=== PATIENT | female | born 1960 | race Caucasian/White ===

== ENCOUNTER 2018-01-12 16:30 | Emergency (ER) | payer OTHER ==
--- OUTSIDE RECORDS SUMMARY | 2018-01-12 16:32 | XMS REPORT | Clinical Summary ---
:1960 Author Organization [facility] Address [address] [place] [address] Phone Care Team Providers Name Role Phone Unavailable Primary Care Provider Unavailable Allergies Active Allergy Reactions Severity Noted Date Comments Erythromycin Anaphylaxis High 02/11/2013 Penicillins Anaphylaxis, Rash High 02/11/2013 Codeine Phosphate Hives 11/17/2005 Fish Containing Products 04/16/2010 Hives (But not to shrimp, pt denies iodine allergy) Adhesive Tape Rash Low 04/16/2010 Aspirin (Tartrazine Only) Rash Low 02/11/2013 Current Medications Prescription Sig. Disp. Refills Start Date End Date Status olmesartan (BENICAR) 40 Take 40 mg by mouth Active MG tablet daily. clopidogrel (PLAVIX) 75 Take 75 mg by mouth Active mg tablet daily. traZODone (DESYREL) 100 Take 100 mg by Active MG tablet mouth nightly. nitroglycerin (NITROSTAT) Place 0.4 mg under Active 0.4 MG SL tablet the tongue every 5 (five) minutes as needed for Chest pain. atorvastatin (LIPITOR) 40 Take 40 mg by mouth Active MG tablet daily. isosorbide mononitrate Take 30 mg by mouth Active (IMDUR) 30 MG 24 hr daily. tablet ALPRAZolam (XANAX) 1 MG Take 1 mg by mouth Active tablet as needed for Anxiety. promethazine (PHENERGAN) Take 25 mg by mouth Active 25 MG tablet as needed for Nausea. sertraline (ZOLOFT) 100 Take 150 mg by Active MG tablet mouth daily. minocycline Take 100 mg by Active (MINOCIN,DYNACIN) 100 MG mouth 2 (two) times capsule daily. HYDROcodone-acetaminophen Take 1 tablet by Active (NORCO 10-325) 10-325 mg mouth every 6 (six) per tablet hours as needed for Pain. FOLIC ACID/MV,FE,OTHER Take 1 tablet by Active MIN (CENTRUM ORAL) mouth daily. ascorbic acid (VITAMIN C) Take 1,000 mg by Active 1000 MG tablet mouth daily. ciprofloxacin (CIPRO) 500 Take 500 mg by Active MG tablet mouth 2 (two) times daily. Active Problems Problem Noted Date Wound dehiscence 06/29/2014 Infected surgical wound 06/29/2014 Coronary atherosclerosis of [place] coronary artery 05/17/2014 Renal artery stenosis (HCC) 05/17/2014 Essential hypertension, benign 05/17/2014 Other and unspecified hyperlipidemia 05/17/2014 Mitral valve disorders(424.0) 05/17/2014 Obesity, unspecified 05/17/2014 Chronic kidney disease, stage II (mild) 05/17/2014 Encounters Date Type Specialty Care Team Description 11/19/2017 Hospital Encounter Cardiology Debbie Davila, Bilateral carotid artery MD occlusion 11/19/2017 Outside Orders Debbie Davila, Bilateral carotid artery MD occlusion (Primary Dx) after 01/11/2017 Social History Tobacco Use Types Packs/Day Years Used Date Former Smoker Comments: Quit > 16 yrs ago Alcohol Use Drinks/Week oz/Week Comments No Sex Assigned at Date Recorded Not on file Last Filed Vital Signs Not on file Plan of Treatment Not on file Results PERIPHERAL VASCULAR REPORT - SCAN (11/20/2017 7:20 AM)Carotid Doppler Bilateral (11/19/2017 5:53 PM) Component Value Ref Range Ejection Fraction Specimen Performing Laboratory [facility] Impressions Right Impression 1. There is <50% diameter reduction (approximately 38% by 2-D measurement) in the internal carotid artery with a peak velocity of 86/27 cm/sec and heterogeneous plaque. 2. There is non-occluding plaque in the external carotid artery. 3. There is non-occluding plaque in the common carotid artery. 4. The vertebral artery flow is antegrade and normal. 5. The subclavian artery is within normal limits where visualized. Left Impression 1. There is 50-69% diameter reduction (closer to 50% by 2-D measurement) in the internal carotid artery with heterogeneous/shadowing plaque, a peak velocity of 177/38 cm/sec and an ICA/CCA peak systolic velocity ratio of 0.38 . 2. There is >50% stenosis in the distal common carotid artery artery with a velocity of 242/56 cm/sec. 3. There is >50% stenosis in the external carotid artery with a velocity of 209/23 cm/sec. 4. The vertebral artery flow is antegrade and normal. Conclusions Summary Carotid duplex scanning and color flow imaging were performed bilaterally. The arteries were adequately visualized. The right internal carotid artery had <50% hemodynamically insignificant stenosis (approximately 38% by 2-D measurement) with heterogeneous plaque. The left internal carotid artery had 50-69% hemodynamically significant stenosis ( closer to 50% by 2-D measurement) with heterogeneous/shadowing plaque. There was a >50% stenosis in the distal common carotid artery . There was a >50% stenosis in the external carotid artery. The vertebral artery flow was antegrade and normal bilaterally. Signature Velocities are measured in cm/s ; Diameters are measured in cm Carotid Right Measurements + +----+----+-----+ + + + !Location !PSV !EDV !Angle!%Stenosis 2D!%Stenosis Doppler! Tortuosity ! + +----+----+-----+ + + + !Prox CCA !87.9!19.9!60 !! ! ! + +----+----+-----+ + + + !Dist CCA !79.7!19.3!60 !! ! ! + +----+----+-----+ + + + !Bulb !93.8!22.3!60 !! ! ! + +----+----+-----+ + + + !Prox ICA !86.8!27!60 !38% !<50% ! ! + +----+----+-----+ + + + !Dist ICA !91.5!31.1!60 !! ! ! + +----+----+-----+ + + + !Prox ECA !104 !17!60 !! ! ! + +----+----+-----+ + + + !Vertebral!81.5!23.5!60 !! ! ! + +----+----+-----+ + + + !Prox Subclavian!99!!60 !! ! ! + +----+----+-----+ + + + - Additional Measurements:ICAPSV/CCAPSV 1.15.ICAEDV/CCAEDV 1.56. Carotid Left Measurements + +----+----+-----+ + + + !Location !PSV !EDV !Angle!%Stenosis 2D!%Stenosis Doppler! Tortuosity ! + +----+----+-----+ + + + !Prox CCA !102 !20.4!60 !! ! ! + +----+----+-----+ + + + !Mid CCA!83.3!15.8!60 !! ! ! + +----+----+-----+ + + + !Dist CCA !242 !56.6!60 !! ! ! + +----+----+-----+ + + + !Bulb !177 !38!60 !! ! ! + +----+----+-----+ + + + !Prox ICA !80.9!24!60 !61% !<50% ! ! + +----+----+-----+ + + + !Dist ICA !92!31.1!60 !! ! ! + +----+----+-----+ + + + !Prox ECA !209 !23.6!60 !! ! ! + +----+----+-----+ + + + !Vertebral!46.8!11!60 !! ! ! + +----+----+-----+ + + + !Prox Subclavian!96.6!!60 !! ! ! + +----+----+-----+ + + + - Additional Measurements:ICAPSV/CCAPSV 0.38.ICAEDV/CCAEDV 1.52. Narrative [facility] - Carotid Duplex Study Demographics Patient Name BRITTANY BARNES Date of Study 11/19/2017 LEONIDES [id number] Age 57 Visit Number [id number] Gender Female Accession Number [id number] [facility] 1960 [facility] Physician ChaloographNilo Orona. Gunnar Brizuela MD, RVTPhysiciemiliano RPVI Procedure Type of Study: Cerebral: Carotid, CAROTID DOPPLER, BILATERAL. Indications for Study:CAD. Patient Status:Routine. Study Location:Vascular Lab. Technical Quality:Adequate visualization. Risk Factors History of Disease + +----+ + !Diagnosis!Date!Comments ! + +----+ + !Previous TN!!16 YEARS AGO ! + +----+ + !CAD!!ACB 1999 ! ! !!PCI x2 2012! + +----+ + !Recent surgery !!Renal artery stent 05/29/2014.! + +----+ + Procedure Note Interface, External Ris In - 11/19/2017 8:45 PM AG SERVICE MANAGER [facility] - Carotid Duplex Study Demographics Patient Name BRITTANY BARNES Date of Study 11/19/2017 LEONIDES Age 57 Visit Number [id number] Gender Female Accession Number [id number] Date of 1960 Referring Lola Muniz Room Number Physician [facility] Erick Barrera Interpreting Pedrito Brizuela MD, RVT Physician RPVI Procedure Type of Study: Cerebral: Carotid, CAROTID DOPPLER, BILATERAL. Indications for Study:CAD. Patient Status:Routine. Study Location:Vascular Lab. Technical Quality:Adequate visualization. Risk Factors History of Disease + +----+ + !Diagnosis !Date!Comments ! + +----+ + !Previous TN ! !16 YEARS AGO ! + +----+ + !CAD ! !ACB 1999 ! ! ! !PCI x2 2012 ! + +----+ + !Recent surgery ! !Renal artery stent 05/29/2014. ! + +----+ + Impressions Right Impression 1. There is <50% diameter reduction (approximately 38% by 2-D measurement) in the internal carotid artery with a peak velocity of 86/27 cm/sec and heterogeneous plaque. 2. There is non-occluding plaque in the external carotid artery. 3. There is non-occluding plaque in the common carotid artery. 4. The vertebral artery flow is antegrade and normal. 5. The subclavian artery is within normal limits where visualized. Left Impression 1. There is 50-69% diameter reduction (closer to 50% by 2-D measurement) in the internal carotid artery with heterogeneous/shadowing plaque, a peak velocity of 177/38 cm/sec and an ICA/CCA peak systolic velocity ratio of 0.38 . 2. There is >50% stenosis in the distal common carotid artery artery with a velocity of 242/56 cm/sec. 3. There is >50% stenosis in the external carotid artery with a velocity of 209/23 cm/sec. 4. The vertebral artery flow is antegrade and normal. Conclusions Summary Carotid duplex scanning and color flow imaging were performed bilaterally. The arteries were adequately visualized. The right internal carotid artery had <50% hemodynamically insignificant stenosis (approximately 38% by 2-D measurement) with heterogeneous plaque. The left internal carotid artery had 50-69% hemodynamically significant stenosis ( closer to 50% by 2-D measurement) with heterogeneous/shadowing plaque. There was a >50% stenosis in the distal common carotid artery . There was a >50% stenosis in the external carotid artery. The vertebral artery flow was antegrade and normal bilaterally. Signature Velocities are measured in cm/s ; Diameters are measured in cm Carotid Right Measurements + +----+----+-----+ + + + !Location !PSV !EDV !Angle!%Stenosis 2D!%Stenosis Doppler!Tortuosity ! + +----+----+-----+ + + + !Prox CCA !87.9!19.9!60 ! ! ! ! + +----+----+-----+ + + + !Dist CCA !79.7!19.3!60 ! ! ! ! + +----+----+-----+ + + + !Bulb !93.8!22.3!60 ! ! ! ! + +----+----+-----+ + + + !Prox ICA !86.8!27 !60 !38% !<50% ! ! + +----+----+-----+ + + + !Dist ICA !91.5!31.1!60 ! ! ! ! + +----+----+-----+ + + + !Prox ECA !104 !17 !60 ! ! ! ! + +----+----+-----+ + + + !Vertebral !81.5!23.5!60 ! ! ! ! + +----+----+-----+ + + + !Prox Subclavian!99 ! !60 ! ! ! ! + +----+----+-----+ + + + - Additional Measurements:ICAPSV/CCAPSV 1.15.ICAEDV/CCAEDV 1.56. Carotid Left Measurements + +----+----+-----+ + + + !Location !PSV !EDV !Angle!%Stenosis 2D!%Stenosis Doppler!Tortuosity ! + +----+----+-----+ + + + !Prox CCA !102 !20.4!60 ! ! ! ! + +----+----+-----+ + + + !Mid CCA !83.3!15.8!60 ! ! ! ! + +----+----+-----+ + + + !Dist CCA !242 !56.6!60 ! ! ! ! + +----+----+-----+ + + + !Bulb !177 !38 !60 ! ! ! ! + +----+----+-----+ + + + !Prox ICA !80.9!24 !60 !61% !<50% ! ! + +----+----+-----+ + + + !Dist ICA !92 !31.1!60 ! ! ! ! + +----+----+-----+ + + + !Prox ECA !209 !23.6!60 ! ! ! ! + +----+----+-----+ + + + !Vertebral !46.8!11 !60 ! ! ! ! + +----+----+-----+ + + + !Prox Subclavian!96.6! !60 ! ! ! ! + +----+----+-----+ + + + - Additional Measurements:ICAPSV/CCAPSV 0.38.ICAEDV/CCAEDV 1.52. after 01/11/2017
--- NOTE | 2018-01-12 17:54 | RAD REPORT ---
EXAM DESCRIPTION: RAD - Chest Pa And Lat (2 Views) - 01/12/2018 5:22 pm CLINICAL HISTORY: ^BLUNT CHEST TRAUMA COMPARISON: CR; Chest 12/30/2016. TECHNIQUE: PA and lateral views of the chest were obtained. FINDINGS: The lungs are fibrotic. Patient has a prominent left side pericardial fat pad. Sternotomy wires are in place. Costophrenic angle blunting is present and unchanged. No pulmonary contusion. No failure or volume overload. Heart size is normal and central vasculature is within normal limits. N o pleural effusion or pneumothorax seen. No acute bony finding noted. No aortic abnormality. IMPRESSION: Chronic interstitial lung disease is present along with pleural scarring. No pulmonary contusion, pneumothorax or other acute chest finding.
--- NOTE | 2018-01-12 18:13 | ER ---
Nurse's Notes [facility] Name: Brittany Barnes Age: 57 yrs Sex: Female : 1960 Arrival Date: 01/12/2018 Time: 16:34 Bed 12 Private MD: Crispin Crenshaw T Diagnosis: Other slipping, tripping and stumbling and falls;Other chest pain-Left Lateral Rib Pain Presentation: 01/12 17:00 Presenting complaint: Patient states: fell Thursday afternoon and hit a sink. pain to L ch ribs and side. Transition of care: patient was not received from another setting of care. Onset of symptoms was January 08, 2018. Initial Sepsis Screen: Does the patient meet any 2 criteria? No. Patient's initial sepsis screen is negative. Does the patient have a suspected source of infection? No. Patient's initial sepsis screen is negative. Care prior to arrival: None. 17:00 Method Of Arrival: Ambulatory 17:00 Acuity: NIL[place] 4 18:25 Mechanism of Injury: Fall from standing position. Trauma event details: Injury occurred aj in the [facility], Injury occurred: at home. Injury occurred: January 08, 2018. Triage Assessment: 17:02 General: Appears in no apparent distress. comfortable, Behavior is calm, cooperative, ch appropriate for age. Pain: Complains of pain in left lateral posterior chest and left lateral anterior chest Pain currently is 4 out of 10 on a pain scale. at worst was 8 out of 10 on a pain scale. Trauma Activation: Not Applicable Physician: ED Physician; Name: ; Notified At: ; Arrived At: Physician: General Surgeon; Name: ; Notified At: ; Arrived At: Physician: Radiology; Name: ; Notified At: ; Arrived At: Physician: Respiratory; Name: ; Notified At: ; Arrived At: Physician: Lab; Name: ; Notified At: ; Arrived At: Historical: - Allergies: 17:02 Aspirin; ch 17:02 Erythromycin; ch 17:02 Fish Containing Products; ch 17:02 PENICILLINS; ch 17:02 any penicillins; ch 17:02 Codeine; ch - Home Meds: 17:04 Plavix 75 mg Oral tab [Active]; ch - PMHx: 17:02 High Cholesterol; Hypertension; one small kidney, on normal; Myocardial infarction; ch 17:04 "clotting disorder, i bleed easily"; - PSHx: 17:02 coronary stent; open heart sx; Appendectomy; Cholecystectomy; PT SKILLED/Stent; bypass; aneurysm/femoral; - Immunization history:: Adult Immunizations up to date. - Social history:: Smoking status: Patient/guardian denies using tobacco. - Immunization history: Last tetanus immunization: - up to date. Screenin:14 Abuse screen: Denies threats or abuse. Denies injuries from another. Tuberculosis aj screening: No symptoms or risk factors identified. 17:17 Nutritional screening: No deficits noted. Fall Risk None identified. aj Primary Survey: 17:14 A: Airway: patent. Breathing/Chest: Respiratory pattern: regular, Respiratory effort: aj spontaneous, unlabored. Circulation: Skin color: pink, Skin temperature: warm, dry. Disability Alert. 18:10 Reassessment Airway Airway Patent Breathing/Chest Respiratory pattern Regular aj Respiratory effort Spontaneous Unlabored Chest inspection Symmetrical Circulation Heart rhythm Sinus rhythm Color [place] Temperature Warm Dry Disability Alert. Assessment: 17:14 General: Appears in no apparent distress. comfortable, Behavior is calm, cooperative, aj appropriate for age. Pain: Complains of pain in left lateral posterior chest, left lateral anterior chest and left tricep. Neuro: Level of Consciousness is awake, alert, obeys commands, Oriented to person, place, time, situation. Respiratory: Airway is patent Respiratory effort is even, unlabored, Respiratory pattern is regular, symmetrical. Derm: Skin is intact, is healthy with good turgor, Skin is pink, warm \\T\\ dry. normal. Vital Signs: 17:02 BP 167 / 70; Pulse 83; Resp 16; Temp 98.3; Pulse Ox 96% on R/A; Weight 95.25 kg; Height 5 ft. 3 in. (160.02 cm); Pain 4/10; 18:00 BP 160 / 71; Pulse 81; Resp 17; Pulse Ox 99% on R/A; aj 17:02 Body Mass Index 37.20 (95.25 kg, 160.02 cm) Kelsey Coma Score: 17:14 Eye Response: spontaneous(4). Verbal Response: oriented(5). Motor Response: obeys aj commands(6). Total: 15. Trauma Score (Adult): 17:14 Eye Response: spontaneous(1); Verbal Response: oriented(1); Motor Response: obeys aj commands(2); Systolic BP: > 89 mm Hg(4); Respiratory Rate: 10 to 29 per min(4); [place] Score: 15; Trauma Score: 12 ED Course: 16:34 Patient arrived in ED. mr 16:34 Crispin Crenshaw MD is Private Physician. mr 17:00 Triage completed. ch 17:02 Arm band placed on left wrist. Patient placed in an exam room, on a stretcher. ch 17:08 Amrik Cole PA is PHCP. cp 17:08 Amrik Coleman MD is Attending Physician. cp 17:14 Osiris Boyd, RN is Primary Nurse. aj 17:14 Patient has correct armband on for positive identification. aj 17:19 Patient moved to radiology via wheelchair. kc2 17:19 X-ray completed. Patient tolerated procedure well. kc2 17:21 XRAY Chest Pa And Lat (2 Views) In Process Unspecified. EDMS 18:00 No provider procedures requiring assistance completed. Patient did not have IV access aj during this emergency room visit. 18:11 Crispin Crenshaw MD is Referral Physician. cp 18:26 Patient maintains SpO2 saturation greater than 95% on room air. aj Administered Medications: No medications were administered Intake: 17:14 PO: 0ml; Total: 0ml. aj Outcome: 18:00 Discharged to home ambulatory. aj 18:00 Condition: good 18:00 Discharge instructions given to patient, Instructed on discharge instructions, follow up and referral plans. medication usage, Demonstrated understanding of instructions, follow-up care, medications, Prescriptions given X 2. 18:12 Discharge ordered by MD. cp 18:25 Patient's length of stay was not longer than 2 hours. aj 18:28 Patient left the ED. aj Signatures: Dispatcher [employer] EDNE Aracely Collier, Osiris Cortez RN, ch RN Maribel Nguyen mr Amirk Cole PA PA cp Carr, Kelsie kc2
--- NOTE | 2018-01-12 18:13 | EDPHYS ---
Physician Documentation [facility] Name: Brittany Barnes Age: 57 yrs Sex: Female : 1960 Arrival Date: 01/12/2018 Time: 16:34 Bed 12 Private MD: Crispin Crenshaw T ED Physician Amrik Coleman HPI: 01/12 18:00 This 57 yrs old Female presents to ER via Ambulatory with complaints of Fall cp Injury. 18:00 Details of fall: The patient fell from an upright position, while walking. Onset: The cp symptoms/episode began/occurred 4 day(s) ago. Associated injuries: The patient sustained injury to the chest, specifically the left lateral anterior chest, contusion, tenderness, injury to the abdomen, specifically the anterior aspect of left lateral abdomen, ecchymosis, tenderness. Severity of symptoms: in the emergency department the symptoms are unchanged, despite home interventions. Historical: - Allergies: 17:02 Aspirin; ch 17:02 Erythromycin; ch 17:02 Fish Containing Products; ch 17:02 PENICILLINS; ch 17:02 any penicillins; ch 17:02 Codeine; ch - Home Meds: 17:04 Plavix 75 mg Oral tab [Active]; ch - PMHx: 17:02 High Cholesterol; Hypertension; one small kidney, on normal; Myocardial infarction; ch 17:04 "clotting disorder, i bleed easily"; ch - PSHx: 17:02 coronary stent; open heart sx; Appendectomy; Cholecystectomy; PRESIDENT AND CMO/Stent; bypass; ch aneurysm/femoral; - Immunization history:: Adult Immunizations up to date. - Social history:: Smoking status: Patient/guardian denies using tobacco. - Immunization history: Last tetanus immunization: - up to date. ROS: 18:02 Eyes: Negative for injury, pain, redness, and discharge. cp 18:02 Constitutional: Negative for body aches, chills, fever, poor PO intake. 18:02 ENT: Negative for drainage from ear(s), ear pain, sore throat, difficulty swallowing, difficulty handling secretions. 18:02 Neck: Negative for pain with movement, pain at rest, bony tenderness. 18:02 Cardiovascular: Positive for chest pain, of the left lateral anterior chest, Negative for edema, palpitations. 18:02 Respiratory: Negative for cough, shortness of breath, wheezing. 18:02 Abdomen/GI: Positive for abdominal pain, of the anterior aspect of left lateral abdomen, Negative for nausea, vomiting, and diarrhea, constipation, black/tarry stool, rectal bleeding. 18:02 Back: Negative for pain at rest, pain with movement. 18:02 Skin: Negative for cellulitis, laceration(s), rash. 18:02 Neuro: Negative for altered mental status, dizziness, loss of consciousness, weakness. 18:02 All other systems are negative. Exam: 18:04 Head/Face: Normocephalic, atraumatic. cp 18:04 Constitutional: The patient appears in no acute distress, alert, awake, non-diaphoretic, non-toxic, well developed, well nourished. 18:04 Eyes: Periorbital structures: appear normal, Conjunctiva: normal, no exudate, no injection, Lids and lashes: appear normal, bilaterally. 18:04 ENT: External ear(s): are unremarkable, Nose: is normal, Mouth: Lips: moist, Oral mucosa: moist, Posterior pharynx: is normal, airway is patent, no erythema, no exudate. 18:04 Neck: C-spine: vertebral tenderness, is not appreciated, crepitus, is not appreciated, ROM/movement: is normal, is supple, without pain, no range of motions limitations, no nuchal rigidity. 18:04 Chest/axilla: Inspection: ecchymosis, that is mild, of the left lateral anterior chest Palpation: tenderness, that is mild, of the left lateral anterior chest. 18:04 Cardiovascular: Rate: normal, Rhythm: regular. 18:04 Respiratory: the patient does not display signs of respiratory distress, Respirations: normal, no use of accessory muscles, no retractions, no splinting, no tachypnea, labored breathing, is not present, Breath sounds: are clear throughout, no decreased breath sounds, no stridor, no wheezing. 18:04 Abdomen/GI: Inspection: bruising, anterior aspect of left lateral abdomen, obese Bowel sounds: active, all quadrants, Palpation: soft, in all quadrants, mild abdominal tenderness, in the anterior aspect of left lateral abdomen, rebound tenderness, is not appreciated, involuntary guarding, is not appreciated. 18:04 Back: vertebral tenderness, is not appreciated, muscle spasm, is not present. 18:04 Skin: cellulitis, is not appreciated, no rash present. 18:04 Neuro: Orientation: to person, place \\T\\ time. Mentation: lucid, able to follow commands, Motor: moves all fours, strength is normal, Sensation: no obvious gross deficits, Gait: is steady. Vital Signs: 17:02 BP 167 / 70; Pulse 83; Resp 16; Temp 98.3; Pulse Ox 96% on R/A; Weight 95.25 kg; Height 5 ft. 3 in. (160.02 cm); Pain 4/10; 18:00 BP 160 / 71; Pulse 81; Resp 17; Pulse Ox 99% on R/A; aj 17:02 Body Mass Index 37.20 (95.25 kg, 160.02 cm) Remer Coma Score: 17:14 Eye Response: spontaneous(4). Verbal Response: oriented(5). Motor Response: obeys aj commands(6). Total: 15. Trauma Score (Adult): 17:14 Eye Response: spontaneous(1); Verbal Response: oriented(1); Motor Response: obeys aj commands(2); Systolic BP: > 89 mm Hg(4); Respiratory Rate: 10 to 29 per min(4); Remer Score: 15; Trauma Score: 12 MDM: 17:08 Patient medically screened. cp 18:00 Differential diagnosis: contusion, fracture, multiple trauma. cp 18:12 Data reviewed: vital signs, nurses notes, radiologic studies, plain films. cp 18:12 Counseling: I had a detailed discussion with the patient and/or guardian regarding: the historical points, exam findings, and any diagnostic results supporting the discharge/admit diagnosis, radiology results, to return to the emergency department if symptoms worsen or persist or if there are any questions or concerns that arise at home. Refusal of service: The patient/guardian displays adequate decision making capability and despite a detailed discussion of alternatives, benefits, risks, and consequences refuses: CT Scan. 01/12 17:06 Order name: XRAY Chest Pa And Lat (2 Views); Complete Time: 17:55 Administered Medications: No medications were administered Disposition: 01/13 06:42 Co-signature as Attending Physician, Amrik Coleman MD I agree with the assessment and julianna plan of care. Disposition: 01/12/18 18:12 Discharged to Home. Impression: Other slipping, tripping and stumbling and falls, Other chest pain - Left Lateral Rib Pain. - Condition is Stable. - Discharge Instructions: Rib Contusion. - Prescriptions for Cyclobenzaprine 10 mg Oral Tablet - take 1 tablet by ORAL route every 8 hours As needed no driving while taking medication; 15 tablet. Tramadol 50 mg Oral Tablet - take 1 tablet by ORAL route every 8 hours as needed; 12 tablet. - Medication Reconciliation Form, Thank You Letter, Antibiotic Education, Prescription Opioid Use form. - Follow up: Crispin Crenshaw MD; When: 1 - 2 days; Reason: Recheck today's complaints. - Problem is new. - Symptoms are unchanged. Signatures: Dispatcher [employer] EDAracely Warner RN Osiris Cortez ch, RN RN aj Anderson, Corey, MD MD cha Page, Corey, PA PA cp
== END 2018-01-12 18:28 | disposition home or self-care (01) ==
LOC: ER 16:30
DX: S20.212A Contusion of left front wall of thorax, initial encounter (principal); R07.81 Pleurodynia; W20.8XXA Other cause of strike by thrown, projected or falling object, initial encounter; Y93.01 Activity, walking, marching and hiking; Y92.9 Unspecified place or not applicable; Z88.0 Allergy status to penicillin
CPT/HCPCS: 71046; 99284

== ENCOUNTER 2018-08-13 12:56 | Emergency (ER) | payer OTHER ==
--- OUTSIDE RECORDS SUMMARY | 2018-08-13 12:58 | XMS REPORT | Clinical Summary ---
:[address] [facility] Address [address] [place] [address] Care Team Providers Name Role Phone Maura Carcamo Unavailable Crispin Crenshaw MD Primary Care Provider Allergies Active Allergy Reactions Severity Noted Date Comments Adhesive Tape Rash Low 04/16/2010 Aspirin (Tartrazine Only) Rash Low 02/11/2013 Codeine Phosphate Hives 11/17/2005 Erythromycin Anaphylaxis High 02/11/2013 Fish Containing Products 04/16/2010 Hives (But not to shrimp, pt denies iodine allergy) Penicillins Anaphylaxis, Rash High 02/11/2013 Medications Medication Sig Dispensed Refills Start Date End Date Status olmesartan (BENICAR) 40 Take 40 mg by 0 Active MG tablet mouth daily. clopidogrel (PLAVIX) 75 Take 75 mg by 0 Active mg tablet mouth daily. traZODone (DESYREL) 100 Take 100 mg by 0 Active MG tablet mouth nightly. nitroglycerin Place 0.4 mg 0 Active (NITROSTAT) 0.4 MG SL under the tongue tablet every 5 (five) minutes as needed for Chest pain. atorvastatin (LIPITOR) Take 40 mg by 0 Active 40 MG tablet mouth daily. isosorbide mononitrate Take 30 mg by 0 Active (IMDUR) 30 MG 24 hr mouth daily. tablet ALPRAZolam (XANAX) 1 MG Take 1 mg by 0 Active tablet mouth as needed for Anxiety. promethazine Take 25 mg by 0 Active (PHENERGAN) 25 MG mouth as needed tablet for Nausea. sertraline (ZOLOFT) 100 Take 150 mg by 0 Active MG tablet mouth daily. minocycline Take 100 mg by 0 Active (MINOCIN,DYNACIN) 100 mouth 2 (two) MG capsule times daily. HYDROcodone-acetaminoph Take 1 tablet by 0 Active en (NORCO 10-325) mouth every 6 10-325 mg per tablet (six) hours as needed for Pain. FOLIC ACID/MV,FE,OTHER Take 1 tablet by 0 Active MIN (CENTRUM ORAL) mouth daily. ascorbic acid (VITAMIN Take 1,000 mg by 0 Active C) 1000 MG tablet mouth daily. ciprofloxacin (CIPRO) Take 500 mg by 0 Active 500 MG tablet mouth 2 (two) times daily. Active Problems Problem Noted Date Wound dehiscence 06/29/2014 Infected surgical wound 06/29/2014 Coronary atherosclerosis of [place] coronary artery 05/17/2014 Renal artery stenosis 05/17/2014 Essential hypertension, benign 05/17/2014 Other and unspecified hyperlipidemia 05/17/2014 Mitral valve disorders(424.0) 05/17/2014 Obesity, unspecified 05/17/2014 Chronic kidney disease, stage II (mild) 05/17/2014 Encounters Date Type Specialty Care Team Description 11/19/2017 Hospital Encounter Cardiology Debbie Davila, Bilateral carotid artery MD occlusion 11/19/2017 Outside Orders Debbie Davila, Bilateral carotid artery MD occlusion (Primary Dx) after 08/12/2017 Social History Tobacco Use Types Packs/Day Years Used Date Former Smoker Comments: Quit > 16 yrs ago Alcohol Use Drinks/Week oz/Week Comments No Sex Assigned at Date Recorded Not on file Job Start Date Occupation Industry Not on file Not on file Not on file Travel History Travel Start Travel End No recent travel history available. Last Filed Vital Signs Not on file Plan of Treatment Not on file Procedures Procedure Name Priority Date/Time Associated Comments Diagnosis PERIPHERAL VASCULAR 11/20/2017 7:20 AM REPORT - SCAN HELICOPTER PILOT CAROTID DOPPLER Routine 11/19/2017 5:53 PM Bilateral carotid Results for this BILATERAL HELICOPTER PILOT artery occlusion procedure are in the results section. after 08/12/2017 Results PERIPHERAL VASCULAR REPORT - SCAN (11/20/2017 7:20 AM HELICOPTER PILOT) Narrative Performed At Carotid Doppler Bilateral (11/19/2017 5:53 PM HELICOPTER PILOT) Ejection Fraction [facility] Impressions Performed At Right Impression [facility] 1. There is <50% diameter reduction (approximately [...] in cm Carotid Right Measurements + +----+----+-----+ +---- + + !Location !PSV !EDV !Angle!%Stenosis 2D!%Stenosis Doppler!Tortuosity ! + +----+----+-----+ +---- + + !Prox CCA !87.9!19.9!60 !! ! ! + +----+----+-----+ +---- + + !Dist CCA !79.7!19.3!60 !! ! ! + +----+----+-----+ +---- + + !Bulb !93.8!22.3!60 !! ! ! + +----+----+-----+ +---- + + !Prox ICA !86.8!27!60 !38% !<50% ! ! + +----+----+-----+ +---- + + !Dist ICA !91.5!31.1!60 !! ! ! + +----+----+-----+ +---- + + !Prox ECA !104 !17!60 !! ! ! + +----+----+-----+ +---- + + !Vertebral!81.5!23.5!60 !! ! ! + +----+----+-----+ +---- + + !Prox Subclavian!99!!60 !! ! ! + +----+----+-----+ +---- + + - Additional Measurements:ICAPSV/CCAPSV 1.15.ICAEDV/CCAEDV 1.56. Carotid Left Measurements + +----+----+-----+ +---- + + !Location !PSV !EDV !Angle!%Stenosis 2D!%Stenosis Doppler!Tortuosity ! + +----+----+-----+ +---- + + !Prox CCA !102 !20.4!60 !! ! ! + +----+----+-----+ +---- + + !Mid CCA!83.3!15.8!60 !! ! ! + +----+----+-----+ +---- + + !Dist CCA !242 !56.6!60 !! ! ! + +----+----+-----+ +---- + + !Bulb !177 !38!60 !! ! ! + +----+----+-----+ +---- + + !Prox ICA !80.9!24!60 !61% !<50% ! ! + +----+----+-----+ +---- + + !Dist ICA !92!31.1!60 !! ! ! + +----+----+-----+ +---- + + !Prox ECA !209 !23.6!60 !! ! ! + +----+----+-----+ +---- + + !Vertebral!46.8!11!60 !! ! ! + +----+----+-----+ +---- + + !Prox Subclavian!96.6!!60 !! ! ! + +----+----+-----+ +---- + + - Additional Measurements:ICAPSV/CCAPSV 0.38.ICAEDV/CCAEDV 1.52. Narrative Performed At LAB - Carotid Duplex Study [facility] Demographics Patient Name BRITTANY BARNES Date of Study 11/19/2017 LEONIDES [id number] Age 57 Visit Number [id number] GenderFemale Accession Number [id number] Date of 1960 [facility] Debbie AguirreJakRoom Number Physician Shanita Orona. Gunnar Brizuela MD, RVT Physician RPVINICIUS Procedure Type of Study: Cerebral: Carotid, CAROTID DOPPLER, BILATERAL. Indications for Study:CAD. Patient Status:Routine. Study Location:Vascular Lab. Technical Quality:Adequate visualization. Risk Factors History of Disease + +----+ + !Diagnosis!Date!Comments ! + +----+ + !Previous ND!!16 YEARS AGO ! + +----+ + !CAD!!ACB 1999 ! ! !!PCI x2 2012 ! + +----+ + !Recent surgery !!Renal artery stent 05/29/2014. ! + +----+ + Procedure Note Interface, External Ris In - 11/19/2017 8:45 PM HELICOPTER PILOT [facility] - Carotid Duplex Study Demographics Patient Name BRITTANY BARNES Date of Study 11/19/2017 LEONIDES Age 57 Visit Number [id number] Gender Female Accession Number [id number] Date of 1960 Referring Lola Muniz Room Number Physician Addiction Therapist Erick Barrera Interpreting Pedrito Brizuela MD, RVT Physician RPVI Procedure Type of Study: Cerebral: Carotid, CAROTID DOPPLER, BILATERAL. Indications for Study:CAD. Patient Status:Routine. Study Location:Vascular Lab. Technical Quality:Adequate visualization. Risk Factors History of Disease + +----+ + !Diagnosis !Date!Comments ! + +----+ + !Previous ND ! !16 YEARS AGO ! + +----+ + !CAD ! !ACB 1999 ! ! ! !PCI x2 2005, 2012 ! + +----+ + !Recent surgery [...] + + - Additional Measurements:ICAPSV/CCAPSV 0.38.ICAEDV/CCAEDV 1.52. Performing Organization Address City/State/Zipcode Phone Number [facility] after 08/12/2017 Insurance Payer Benefit Plan / Group Subscriber ID Type Phone Address CARE IMPROVEMENT MEDICARE [employer] CARE IMPROVEMENT PLUS xxxxxxxxx CARE (Home) [place] [address] Advance Directives For more information, please contact:[address] [phone] Code Status Date Activated Date Inactivated Comments Full Code 06/29/2014 8:39 AM 06/30/2014 10:40 PM This code status was determined by: Patient Full Code 06/29/2014 5:55 AM 06/29/2014 8:39 AM This code status was determined by: Patient Full Code 05/29/2014 6:36 AM 06/05/2014 1:46 PM This code status was determined by: Patient
[2018-08-13] MEDS ORDERED: METHYLPREDNISOLONE 125 MG INJ ONE (13:55)
[2018-08-13] MEDS ORDERED: FAMOTIDINE 20 MG/2 ML VIAL IV ONE (13:55)
--- NOTE | 2018-08-13 15:46 | ER ---
Nurse's Notes [facility] Name: Brittany Barnes Age: 58 yrs Sex: Female : 1960 Arrival Date: 08/13/2018 Time: 13:01 Bed 30 Private MD: Diagnosis: Toxic effect of venom of bees Presentation: 08/13 13:01 Presenting complaint: Patient states: " I was stung by a bee about 20 min ago. I had a ph bad reaction to a bee sting when I was younger." Pt reports taking Benadryl x 2 at home, denies SOB at this time, lungs CTA w/ no wheezing noted, pt does report nausea, Spo2 97% RA. Transition of care: patient was not received from another setting of care. Onset: The symptoms/episode began/occurred acutely. Anaphylaxis evaluation, no signs or symptoms of anaphylaxis were noted. Onset of symptoms was August 13, 2018. Risk Assessment: Do you want to hurt yourself or someone else? Patient reports no desire to harm self or others. Care prior to arrival: None. 13:01 Method Of Arrival: Ambulatory ph 13:01 Acuity: NIL[place] 3 ph 13:15 Initial Sepsis Screen: Does the patient meet any 2 criteria? No. Patient's initial kr2 sepsis screen is negative. Does the patient have a suspected source of infection? No. Patient's initial sepsis screen is negative. Historical: - Allergies: 13:05 any penicillins; ph 13:05 Aspirin; ph 13:05 Codeine; ph 13:05 Erythromycin; ph 13:05 Fish Containing Products; ph 13:05 PENICILLINS; ph - PMHx: 13:05 "clotting disorder, i bleed easily"; High Cholesterol; Hypertension; Myocardial ph infarction; one small kidney, on normal; - Immunization history:: Adult Immunizations up to date. - Social history:: Smoking status: Patient uses tobacco products. - Ebola Screening: : No symptoms or risks identified at this time. Screenin:15 Abuse screen: Denies threats or abuse. Denies injuries from another. Nutritional kr2 screening: No deficits noted. Tuberculosis screening: No symptoms or risk factors identified. Fall Risk None identified. Assessment: 13:15 General: Appears in no apparent distress. uncomfortable, well groomed, well developed, kr2 well nourished, Behavior is calm, cooperative, appropriate for age. Pain: Complains of pain in right tricep Pain does not radiate. Pain currently is 10 out of 10 on a pain scale. Quality of pain is described as burning, Is continuous, Alleviated by nothing. Neuro: Level of Consciousness is awake, alert, obeys commands, Oriented to person, place, time, situation, Appropriate for age. Cardiovascular: Capillary refill < 3 seconds in bilateral fingers Patient's skin is warm and dry. Respiratory: Airway is patent Respiratory effort is even, unlabored, Respiratory pattern is regular, symmetrical, Breath sounds are clear bilaterally. GI: Abdomen is flat, non-distended. EENT: Nares are clear bilaterally Oral mucosa is moist. Throat is clear bilaterally. Derm: Skin is intact, is healthy with good turgor, Skin is pink, warm \\T\\ dry. sting noted to right tricep area, red and swollen with pinpoint size purple area to center. Musculoskeletal: Circulation, motion, and sensation intact. 14:37 Reassessment: Patient appears in no apparent distress at this time. Patient and/or kr2 family updated on plan of care and expected duration. Pain level reassessed. Patient is alert, oriented x 3, equal unlabored respirations, skin warm/dry/pink. Patient states feeling better. Patient states symptoms have improved. 15:53 Reassessment: Patient appears in no apparent distress at this time. Patient and/or kr2 family updated on plan of care and expected duration. Pain level reassessed. Patient is alert, oriented x 3, equal unlabored respirations, skin warm/dry/pink. Patient states feeling better. Patient states symptoms have improved. Vital Signs: 13:04 BP 203 / 95; Pulse 87; Resp 18; Temp 97.8; Pulse Ox 97% on R/A; Weight 87.54 kg; Height ph 5 ft. 10 in. (177.80 cm); 13:54 BP 190 / 83; Pulse 85; Resp 22; Pulse Ox 97% ; kr2 14:12 BP 165 / 87; Pulse 86; Resp 21; Pulse Ox 97% ; kr2 15:53 BP 170 / 88; Pulse 74; Resp 20; Pulse Ox 99% on R/A; kr2 13:04 Body Mass Index 27.69 (87.54 kg, 177.80 cm) ph ED Course: 13:01 Patient arrived in ED. ph 13:04 Triage completed. ph 13:05 Arm band placed on. ph 13:15 Patient has correct armband on for positive identification. Bed in low position. Call kr2 light in reach. Side rails up X 1. pvc monitor on. Pulse ox on. NIBP on. Door closed. Warm blanket given. Head of bed elevated. 13:20 Andres Montana MD is Attending Physician. kdr 13:45 Inserted saline lock: 22 gauge in right antecubital area, using aseptic technique. kr2 14:12 Siena London, RN is Primary Nurse. kr2 15:54 No provider procedures requiring assistance completed. IV discontinued, intact, kr2 bleeding controlled, No redness/swelling at site. Pressure dressing applied. Administered Medications: 13:51 Drug: SOLU-Medrol 125 mg Route: IVP; Site: right antecubital; kr2 15:55 Follow up: Response: No adverse reaction; Marked relief of symptoms kr2 13:52 Drug: Pepcid 20 mg Route: IVP; Site: right antecubital; kr2 15:54 Follow up: Response: No adverse reaction; Marked relief of symptoms kr2 Outcome: 15:41 Discharge ordered by . kdr 15:54 Discharged to home ambulatory. kr2 15:54 Condition: good 15:54 Discharge instructions given to patient, Instructed on discharge instructions, follow up and referral plans. medication usage, Demonstrated understanding of instructions, follow-up care, medications, Prescriptions given X 3. 15:55 Patient left the ED. kr2 Signatures: Andres Montana MD MD [facility] Nicci Mason RN RN Siena London, ASTER RN kr2 Corrections: (The following items were deleted from the chart) 14:37 13:15 Social history: Smoking status: Patient/guardian denies using tobacco, kr2 kr2
--- NOTE | 2018-08-13 15:46 | EDPHYS ---
Physician Documentation [facility] Name: Brittany Barnes Age: 58 yrs Sex: Female : 1960 Arrival Date: 08/13/2018 Time: 13:01 Bed 30 Private MD: ED Physician Andres Montana HPI: 08/13 17:12 This 58 yrs old Female presents to ER via Ambulatory with complaints of kdr Allergic Reaction. 17:12 The patient presents with localized swelling, redness of skin, runny nose. Onset: The kdr symptoms/episode began/occurred acutely. Associated signs and symptoms: Pertinent positives: Localized pain and swelling at the site of pain, Pertinent negatives: abdominal pain, Altered mental status chest pain, dysphagia, fever, headache, hives, Light headed nausea, rash, shortness of breath. Historical: - Allergies: 13:05 any penicillins; ph 13:05 Aspirin; ph 13:05 Codeine; ph 13:05 Erythromycin; ph 13:05 Fish Containing Products; ph 13:05 PENICILLINS; ph - PMHx: 13:05 "clotting disorder, i bleed easily"; High Cholesterol; Hypertension; Myocardial ph infarction; one small kidney, on normal; - Immunization history:: Adult Immunizations up to date. - Social history:: Smoking status: Patient uses tobacco products. - Ebola Screening: : No symptoms or risks identified at this time. Vital Signs: 13:04 BP 203 / 95; Pulse 87; Resp 18; Temp 97.8; Pulse Ox 97% on R/A; Weight 87.54 kg; Height ph 5 ft. 10 in. (177.80 cm); 13:54 BP 190 / 83; Pulse 85; Resp 22; Pulse Ox 97% ; kr2 14:12 BP 165 / 87; Pulse 86; Resp 21; Pulse Ox 97% ; kr2 15:53 BP 170 / 88; Pulse 74; Resp 20; Pulse Ox 99% on R/A; kr2 13:04 Body Mass Index 27.69 (87.54 kg, 177.80 cm) ph MDM: 15:41 Patient medically screened. kdr Administered Medications: 13:51 Drug: SOLU-Medrol 125 mg Route: IVP; Site: right antecubital; kr2 15:55 Follow up: Response: No adverse reaction; Marked relief of symptoms kr2 13:52 Drug: Pepcid 20 mg Route: IVP; Site: right antecubital; kr2 15:54 Follow up: Response: No adverse reaction; Marked relief of symptoms kr2 Disposition: 08/13/18 15:41 Discharged to Home. Impression: Toxic effect of venom of bees. - Condition is Stable. - Discharge Instructions: Bee, Wasp, or Hornet Sting, Adult. - Prescriptions for Benadryl 25 mg Oral Capsule - take 1 capsule by ORAL route every 6 hours As needed; 30 tablet. Medrol (Jim) 4 mg Oral Tablets, Dose Pack - take 1 tablet by ORAL route as directed - follow package instructions; 1 packet. Tramadol 50 mg Oral Tablet - take 1 tablet by ORAL route every 8 hours as needed; 12 tablet. - Medication Reconciliation Form, Thank You Letter form. - Follow up: Private Physician; When: 2 - 3 days; Reason: If symptoms return, Further diagnostic work-up, Recheck today's complaints, Continuance of care, Re-evaluation by your physician. - Problem is new. - Symptoms have improved. Addendum: 08/20/2018 05:50 Addendum: CC: Bee sting to right arm - posterior axilla HPI: The patient states that k she was stung by a bee about 20 minutes SOFTWARE CLERK. She has had a bad reaction about 20 years ago to a prior bee sting and was concerned that that my happen again. It had been suggested that she get an Epi-Pen and that time but she states that she was not going to be able to inject herself so she didnt get the device. . 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 05:51 Addendum: Exam: Const: WDWN WF in NAD, Head/Face: no injury, pain or deformity, Eyes: k dr STRINGER, ENT: no pain, injury or bleeding, Neck: no pain, injury or deformity, full ROM, Chest/Axilla: No pain, injury or deformity, CV: no rubs, gallops, murmurs, regular rate, Resp: CTAB, regular rate, Abd/GI: soft, NT, BS present in all quads and normal, Back: no injury or deformity, full ROM, MS/Extremity: no injury or deformity, FROM, distal pulses good and equal, there is a 1.5 cm x 2.5 cm area of redness, minor swelling and pain. No apparent stinger still present Skin: no rashes, ecchymosis skin turgor good, Neuro: CN grossly intact, no other neuro deficits, Psych: appropriate for age, no SI/HI, no depression . Addendum: MDM (Discharge) All VS and nursing notes reviewed. The patient was counseled on the results and need for follow-up. The patient was discharged in stable condition. They were happy with the care they received and the plan for d/c and follow-up. . Signatures: Andres Montana MD MD kdr iNcci Mason RN RN Siena London, ASTER RN kr2 Corrections: (The following items were deleted from the chart) 08/13 14:37 13:15 Social history: Smoking status: Patient/guardian denies using tobacco, kr2 kr2 15:55 15:41 08/13/2018 15:41 Discharged to Home. Impression: Toxic effect of venom of bees. kr2 Condition is Stable. Forms are Medication Reconciliation Form, Thank You Letter, Antibiotic Education, Prescription Opioid Use. Follow up: Private Physician; When: 2 - 3 days; Reason: If symptoms return, Further diagnostic work-up, Recheck today's complaints, Continuance of care, Re-evaluation by your physician. Problem is new. Symptoms have improved. kdr
== END 2018-08-13 15:55 | disposition home or self-care (01) ==
LOC: ER 12:56
DX: T63.441A Toxic effect of venom of bees, accidental (unintentional), initial encounter (principal); I10 Essential (primary) hypertension; Z88.0 Allergy status to penicillin; Z88.3 Allergy status to other anti-infective agents; Z88.6 Allergy status to analgesic agent; Z91.013 Allergy to seafood
CPT/HCPCS: 96374; 96375; 99284; J2930

== ENCOUNTER 2019-05-21 14:36 | Emergency (ER) | payer OTHER ==
--- OUTSIDE RECORDS SUMMARY | 2019-05-21 14:38 | XMS REPORT | Clinical Summary ---
:1960 Author Organization [facility] Address [address] [place] [address] Care Team Providers Name Role Phone Maura [...] Infected surgical wound 06/29/2014 Coronary atherosclerosis of [place] coronary artery 05/17/2014 Renal artery stenosis 05/17/2014 Essential hypertension, benign 05/17/2014 Other and unspecified hyperlipidemia 05/17/2014 Mitral valve disorders(424.0) 05/17/2014 Obesity, unspecified 05/17/2014 Chronic kidney disease, stage II (mild) 05/17/2014 Social History Tobacco Use Types Packs/Day Years [...] Plan of Treatment Not on file Results Not on fileafter 05/20/2018 Insurance Payer Benefit Plan / Group Subscriber ID Type Phone Address CARE IMPROVEMENT MEDICARE MGD CARE IMPROVEMENT PLUS xxxxxxxxx CARE (Home) [place] [address] Advance Directives For more information, please contact:[address] [phone] Code Status Date Activated Date Inactivated Comments Full Code 06/29/2014 8:39 AM 06/30/2014 10:40 PM This code status was determined by: Patient Full Code 06/29/2014 5:55 AM 06/29/2014 8:39 AM This code status was determined by: Patient Full Code 05/29/2014 6:36 AM 06/05/2014 1:46 PM This code status was determined by: Patient
[2019-05-21] MEDS ORDERED: LEVALBUTEROL 1.25 MG/3 ML NEB ONE (15:09)
[2019-05-21 15:49] LABS: Absolute Lymphocytes (CBC) 2.5 K/uL (0.7-4.9); Basophils % 0.5 % (0-1.3); Hematocrit 43.2 % (36.0-45.0); MPV 8.7 fL (7.6-11.3); RBC Red Blood Cell Count 4.79 M/uL (3.86-4.86)
[2019-05-21 16:12] LABS: BUN Blood Urea Nitrogen 21 mg/dL (7-18); Bicarbonate 25 mmol/L (21-32); Glucose Level 109 mg/dL (74-106); NT PRO-BNP 1102 pg/mL (<125); Potassium 3.6 mmol/L (3.5-5.1); Sodium Level 139 mmol/L (136-145); Troponin (Emerg Dept Use Only) < 0.02 ng/mL (0.0-0.045)
--- NOTE | 2019-05-21 16:21 | RAD REPORT ---
EXAM DESCRIPTION: RAD - Chest Single View - 05/21/2019 3:30 pm CLINICAL HISTORY: Cough, shortness of breath COMPARISON: August 2018 TECHNIQUE: AP portable chest image was obtained 1508 hours . FINDINGS: Chronic interstitial lung disease matches comparison. This can mask early interstitial ochoa ma or infiltrate. No focal mass or consolidation. Heart and vasculature are normal. No measurable ple ural effusion and no pneumothorax. No acute bony abnormality seen. No acute aortic findings suspected . IMPRESSION: No focal mass or consolidation. Chronic interstitial lung changes are present potentially masking early edema or infiltrate.
[2019-05-21] MEDS ORDERED: FUROSEMIDE 40 MG/4 ML VIAL ONE (16:33)
--- NOTE | 2019-05-21 18:38 | ER ---
Nurse's Notes [facility] Name: Brittany Barnes Age: 59 yrs Sex: Female : 1960 Arrival Date: 05/21/2019 Time: 14:38 Bed 7 Private MD: Diagnosis: Pulmonary edema;Bronchitis, not specified as acute or chronic;Dyspnea, unspecified Presentation: 05/21 14:39 Presenting complaint: Patient states: shortness of breath and cough that began last ss night. Is worse today. Transition of care: patient was not received from another setting of care. Onset of symptoms was May 20, 2019. Risk Assessment: Do you want to hurt yourself or someone else? Patient reports no desire to harm self or others. Initial Sepsis Screen: Does the patient have a suspected source of infection? No. Patient's initial sepsis screen is negative. Initial Sepsis Screen: Does the patient meet any 2 criteria? RR > 20 per min. Care prior to arrival: None. 14:39 Method Of Arrival: Ambulatory ss 14:39 Acuity: NILTON 3 ss Triage Assessment: 14:45 General: Appears in no apparent distress. comfortable, obese, Behavior is cooperative, bp appropriate for age, anxious. Pain: Denies pain. EENT: No deficits noted. Neuro: No deficits noted. Cardiovascular: Rhythm is sinus rhythm. Respiratory: Reports shortness of breath cough that is Onset: The symptoms/episode began/occurred at an unknown time. the patient has mild shortness of breath. GI: No signs and/or symptoms were reported involving the gastrointestinal system. : No signs and/or symptoms were reported regarding the genitourinary system. Derm: No signs and/or symptoms reported regarding the dermatologic system. Musculoskeletal: No deficits noted. Historical: - Allergies: 14:41 PENICILLINS; ss 14:41 Fish Containing Products; ss 14:41 Erythromycin; ss 14:41 Codeine; ss 14:41 Aspirin; ss - PMHx: 14:41 "clotting disorder, i bleed easily"; High Cholesterol; Hypertension; Myocardial ss infarction; "one small kidney"; - Immunization history:: Adult Immunizations up to date. - Social history:: Smoking status: Patient/guardian denies using tobacco. - Ebola Screening: : Patient denies exposure to infectious person Patient denies travel to an Ebola-affected area in the 21 days before illness onset. - Family history:: not pertinent. - Hospitalizations: : No recent hospitalization is reported. Screenin:55 Abuse screen: Denies threats or abuse. Denies injuries from another. Nutritional bp screening: No deficits noted. Tuberculosis screening: No symptoms or risk factors identified. Fall Risk None identified. Assessment: 14:45 General: SEE TRIAGE NOTE. Cardiovascular: No deficits noted. Respiratory: Airway is bp patent Respiratory effort is even, unlabored, Respiratory pattern is regular, symmetrical, Breath sounds are coarse bilaterally. 14:45 Cardiovascular: Rhythm is sinus rhythm. bp 17:00 Reassessment: ALL CURRENT ORDERS COMPLETED, VS STABLE. bp 18:49 Reassessment: PT D/C HOME AMBULATORY, DX WITH PULMONARY EDEMA AND BRONCHITIS. bp Vital Signs: 14:44 BP 127 / 62; Pulse 73; Resp 22; Temp 98.0(TE); Pulse Ox 95% on R/A; Weight 80.74 kg; ss Height 5 ft. 10 in. (177.80 cm); Pain 0/10; 15:54 BP 117 / 62; Pulse 76; Resp 23; Pulse Ox 97% ; bp 16:47 BP 139 / 65; Pulse 66; Resp 27; Temp 98.2(O); Pulse Ox 93% on R/A; mh5 17:51 BP 139 / 65; Pulse 81; Resp 18; Pulse Ox 96% ; bp 18:36 BP 143 / 76; Pulse 72; Resp 23; Temp 98.1(TE); Pulse Ox 95% on R/A; mh5 14:44 Body Mass Index 25.54 (80.74 kg, 177.80 cm) ss ED Course: 14:38 Patient arrived in ED. as 14:39 Erick Jaramillo, RN is Primary Nurse. bp 14:41 Triage completed. ss 14:44 Arm band placed on right wrist. ss 14:48 Obed Dc MD is Attending Physician. rn 15:00 Inserted saline lock: 20 gauge in left antecubital area, using aseptic technique. Blood bp collected. 15:31 XRAY CXR (1 view) In Process Unspecified. EDMS 15:55 Patient has correct armband on for positive identification. Bed in low position. Call bp light in reach. Side rails up X2. 17:50 Blood Culture Adult (2) Sent. bp 17:50 BMP Sent. bp 17:50 CBC with Diff Sent. bp 17:50 Blood Culture Sent. bp 18:44 No provider procedures requiring assistance completed. IV discontinued, intact, bp bleeding controlled, No redness/swelling at site. Pressure dressing applied. Administered Medications: 15:10 Drug: Xopenex (3) 1.25 mg Route: Inhalation; bp 16:34 Drug: Lasix 40 mg Route: IVP; Site: left antecubital; bp 17:48 Follow up: Response: No adverse reaction bp 18:44 Drug: Zithromax 500 mg Route: PO; bp 18:44 Follow up: Response: No adverse reaction; Medication administered at discharge. bp Outcome: 18:37 Discharge ordered by MD. rn 18:49 Discharged to home ambulatory. bp 18:49 Condition: stable 18:49 Discharge instructions given to patient, Instructed on discharge instructions, follow up and referral plans. medication usage, Demonstrated understanding of instructions, follow-up care, medications, Prescriptions given X 3. 18:50 Patient left the ED. bp Signatures: Dispatcher [employer] EDMS Edita Gtz Roman, MD MD rn Smirch, Shelby, RN RN Maribel Gtz [facility] Erick Jaramillo RN RN bp Corrections: (The following items were deleted from the chart) 14:45 14:39 Initial Sepsis Screen: Does the patient meet any 2 criteria? [facility]
--- NOTE | 2019-05-21 18:38 | EDPHYS ---
Physician Documentation [facility] Name: Brittany Barnes Age: 59 yrs Sex: Female : 1960 Arrival Date: 05/21/2019 Time: 14:38 Bed 7 Private MD: ED Physician Obed Dc HPI: 05/21 15:51 This 59 yrs old Female presents to ER via Ambulatory with complaints of rn Shortness Of Breath. 15:51 The patient has shortness of breath at rest, with light activity. rn 15:51 Onset: The symptoms/episode began/occurred yesterday. Duration: The symptoms are rn intermittent. The patient's shortness of breath is aggravated by light activity, supine position. Severity of symptoms: At their worst the symptoms were moderate in the emergency department the symptoms are unchanged. It is unknown whether or not the patient has had similar symptoms in the past. The patient has not recently seen a physician. Historical: - Allergies: 14:41 PENICILLINS; ss 14:41 Fish Containing Products; ss 14:41 Erythromycin; ss 14:41 Codeine; ss 14:41 Aspirin; ss - PMHx: 14:41 "clotting disorder, i bleed easily"; High Cholesterol; Hypertension; Myocardial ss infarction; "one small kidney"; - Immunization history:: Adult Immunizations up to date. - Social history:: Smoking status: Patient/guardian denies using tobacco. - Ebola Screening: : Patient denies exposure to infectious person Patient denies travel to an Ebola-affected area in the 21 days before illness onset. - Family history:: not pertinent. - Hospitalizations: : No recent hospitalization is reported. ROS: 15:51 Constitutional: Negative for fever, chills, and weight loss, Eyes: Negative for injury, rn pain, redness, and discharge, Neck: Negative for injury, pain, and swelling, Cardiovascular: Negative for chest pain, palpitations, and edema, Respiratory: + cough and sob, + DELGADO and orthopnea Abdomen/GI: Negative for abdominal pain, nausea, vomiting, diarrhea, and constipation, MS/Extremity: Negative for injury and deformity, Skin: Negative for injury, rash, and discoloration, Neuro: Negative for headache, weakness, numbness, tingling, and seizure. Exam: 15:51 Constitutional: This is a well developed, well nourished patient who is awake, alert, rn and in no acute distress. Head/Face: Normocephalic, atraumatic. Eyes: Pupils equal round and reactive to light, extra-ocular motions intact. Lids and lashes normal. Conjunctiva and sclera are non-icteric and not injected. Cornea within normal limits. Periorbital areas with no swelling, redness, or edema. Cardiovascular: Regular rate and rhythm. No pulse deficits. Respiratory: + faint inspiratory and exp wheezing, mild tachypnea, no retractions, + speaking full sentences Abdomen/GI: soft, non-tender MS/ Extremity: Pulses equal, no cyanosis. Neurovascular intact. Full, normal range of motion. Equal circumference. Neuro: Awake and alert, GCS 15, oriented to person, place, time, and situation. Cranial nerves II-XII grossly intact. Motor strength 5/5 in all extremities. Sensory grossly intact. Vital Signs: 14:44 BP 127 / 62; Pulse 73; Resp 22; Temp 98.0(TE); Pulse Ox 95% on R/A; Weight 80.74 kg; ss Height 5 ft. 10 in. (177.80 cm); Pain 0/10; 15:54 BP 117 / 62; Pulse 76; Resp 23; Pulse Ox 97% ; bp 16:47 BP 139 / 65; Pulse 66; Resp 27; Temp 98.2(O); Pulse Ox 93% on R/A; mh5 17:51 BP 139 / 65; Pulse 81; Resp 18; Pulse Ox 96% ; bp 18:36 BP 143 / 76; Pulse 72; Resp 23; Temp 98.1(TE); Pulse Ox 95% on R/A; mh5 14:44 Body Mass Index 25.54 (80.74 kg, 177.80 cm) MDM: 14:48 Patient medically screened. rn 18:33 Differential diagnosis: Bronchitis CHF exacerbation, Chronic Obstructive Pulmonary rn Disease Myocardial Infarction pneumonia, Pneumothorax pulmonary edema. Data reviewed: vital signs, nurses notes, lab test result(s), EKG, radiologic studies, plain films, and as a result, I will discharge patient. Counseling: I had a detailed discussion with the patient and/or guardian regarding: the historical points, exam findings, and any diagnostic results supporting the discharge/admit diagnosis, lab results, radiology results. Response to treatment: the patient's symptoms have markedly improved after treatment. ED course: Pt states feels much better, offered admission/observation, patient wants to go home, states feels much better, understands risks of going home and need for return, states multiple people staying with her right now. Recommend taking her lasix as she only takes it for peripheral edema. Also will prescribe abx given yellow sputum, and steroids. . 05/21 14:53 Order name: Blood Culture Adult (2) 05/21 14:53 Order name: BMP 05/21 14:53 Order name: CBC with Diff rn 05/21 14:53 Order name: NT PRO-BNP; Complete Time: 16:26 05/21 14:53 Order name: Troponin (emerg Dept Use Only); Complete Time: 16:26 05/21 14:54 Order name: Blood Culture [facility] 05/21 14:53 Order name: XRAY CXR (1 view); Complete Time: 16:26 05/21 14:53 Order name: EKG; Complete Time: 14:54 05/21 14:53 Order name: Cardiac monitoring; Complete Time: 15:05 05/21 14:54 Order name: Basic Metabolic Panel; Complete Time: 16:26 [facility] 05/21 14:54 Order name: CBC with Automated Diff; Complete Time: 16:26 [facility] 05/21 14:53 Order name: EKG - Nurse/Tech; Complete Time: 15:36 05/21 14:53 Order name: IV Saline Lock; Complete Time: 15:20 05/21 14:53 Order name: Labs collected and sent; Complete Time: 15:19 05/21 14:53 Order name: O2 Per Protocol; Complete Time: 15:05 05/21 14:53 Order name: O2 Sat Monitoring; Complete Time: 15:05 rn Administered Medications: 15:10 Drug: Xopenex (3) 1.25 mg Route: Inhalation; bp 16:34 Drug: Lasix 40 mg Route: IVP; Site: left antecubital; bp 17:48 Follow up: Response: No adverse reaction bp 18:44 Drug: Zithromax 500 mg Route: PO; bp 18:44 Follow up: Response: No adverse reaction; Medication administered at discharge. bp Disposition: 05/21/19 18:37 Discharged to Home. Impression: Pulmonary edema, Bronchitis, not specified as acute or chronic, Dyspnea, unspecified. - Condition is Stable. - Discharge Instructions: Acute Bronchitis, Adult, Heart Failure, Shortness of Breath. - Prescriptions for Prednisone 20 mg Oral Tablet - take 3 tablet by ORAL route once daily for 5 days; 15 tablet. Zithromax Z- Jim 250 mg Oral Tablet - take 1 tablet by ORAL route as directed for 5 days Day 1 - take two (2) tablets one time. Day 2, 3, 4 , 5 take one (1) tablet once daily.; 6 tablet. Albuterol Sulfate 90 mcg/actuation - inhale 1-2 puff by INHALATION route every 4-6 hours; 1 Inhaler. - Medication Reconciliation Form, Thank You Letter, Antibiotic Education, Prescription Opioid Use form. - Follow up: Private Physician; When: 2 - 3 days; Reason: Recheck today's complaints, Re-evaluation by your physician. - Problem is new. - Symptoms have improved. Signatures: Dispatcher [employer] EDMS Obed Dc MD MD rn Smirch, Shelby, RN RN ss Peltier, Brian, RN RN bp Corrections: (The following items were deleted from the chart) 18:50 18:37 05/21/2019 18:37 Discharged to Home. Impression: Pulmonary edema; Bronchitis, not bp specified as acute or chronic; Dyspnea, unspecified. Condition is Stable. Forms are Medication Reconciliation Form, Thank You Letter, Antibiotic Education, Prescription Opioid Use. Follow up: Private Physician; When: 2 - 3 days; Reason: Recheck today's complaints, Re-evaluation by your physician. Problem is new. Symptoms have improved. rn
[2019-05-21] MEDS ORDERED: AZITHROMYCIN 250 MG TAB ONE (18:40)
[2019-05-21 21:59] VITALS: BP 143/76; TEMP 98.1; O2SAT 95
--- NOTE | 2019-05-22 09:33 | EKG ---
Test Date: 2019-05-21 Test Time: 15:31:22 Manager Project: EDIS MEASUREMENT RESULTS: Intervals: Rate: 75 RI: 146 QRSD: 92 QT: 422 QTc: 471 [place]: P: 105 RI: 146 QRS: 137 T: 149 INTERPRETIVE STATEMENTS: Suspect arm lead reversal, interpretation assumes no reversal Normal sinus rhythm Left posterior fascicular block Nonspecific ST and T wave abnormality Prolonged QT Abnormal ECG Compared to ECG 12/30/2016 08:59:15 Left posterior fascicular block now present ST (T wave) deviation now present Prolonged QT interval now present Sinus bradycardia no longer present Electronically Signed On 05-22-19 09:32:34 CDT by Reji Cope
== END 2019-05-21 18:50 | disposition home or self-care (01) ==
LOC: ER 14:36
DX: J40 Bronchitis, not specified as acute or chronic (principal); J81.1 Chronic pulmonary edema; R06.00 Dyspnea, unspecified; Z88.0 Allergy status to penicillin; Z91.013 Allergy to seafood; Z88.6 Allergy status to analgesic agent
CPT/HCPCS: 93005; 87040 ×2; 85025; 80048; 36415; 84484; 83880; 71045; 96374; 99285; J1940

== ENCOUNTER 2022-04-08 18:47 | Inpatient (IN) | payer OTHER ==
--- OUTSIDE RECORDS SUMMARY | 2022-04-08 18:50 | XMS REPORT | Continuity of Care Document ---
:[address] [facility] t Address [address] [place] [address] Care Team Providers Name Role Phone Pcp, Does Not Have A Primary Care Physician EDI, A Attending Clinician Unavailable Therapy, Covid Infusion Attending Clinician Unavailable Edi FRANCOIS, A Attending Clinician Doctor Unassigned, Name Attending Clinician Unavailable Payers Payer Name Policy Type Policy Number Effective Date Expiration Date [facility] [id number] 2021 MEDICARE GOLD 00:00:00 Problems Condition Condition Condition Status Onset Resolution Last Treating Co mments Source Name Details Category Date Date Treatment Clinician Date Wound Wound Disease Active 2013-[address] [facility] dehiscence dehiscence 0-16 Leena kes 00:00: Medical 00 [place] Infected Infected Disease Active 2013[facility] wound wound 00:[facility] 00 [facility] Coronary Coronary Disease [facility] atheroscle atheroscle 903 Leena kes rosis of rosis of 00:00: Medica l cabazon cabazon 00 Center coronary coronary artery artery Renal Renal Disease Active [facility] artery artery 9-03 [facility] stenosis stenosis 00:00: Medica l 00 Center Essential Essential Disease Active [facility] hypertensi hypertensi 05-17 Leena kes on, benign on, benign 00:00: Me dical 00 Center Other and Other and Disease Active [facility] unspecifie unspecifie 05-17 Leena kes d d 00:00: Medical hyperlipid hyperlipid 00 Ce nter emia emia Mitral Mitral Disease Active [facility] valve valve 05-17 [facility] disorders( disorders( 00:00: Me dical 424.0) 424.0) 00 Center Obesity, Obesity, Disease [facility] unspecifie unspecifie 05-17 Leena kes d d 00:00: Medical 00 [place] Chronic Chronic Disease Active [facility] kidney kidney 05-17 [facility] disease, disease, 00:00: Medica l stage II stage II 00 Center (mild) (mild) Allergies, Adverse Reactions, Alerts Allergy Allergy Status Severity Reaction(s) Onset Inactive Treating Comm ents Source Name Type Date Date Clinician ERYTHROM DRUG Active Anaphylaxis Uni vers YCIN 05-23 ity of 00:00: [place] 00 [facility] PENICILL Drug Active Anaphylaxis Uni vers INS Class 05-23 ity of 00:00: [place] 00 [facility] Erythrom Propensi Active Anaphylaxis U nivers ycin ty to 05-23 ity of adverse 00:00: [place] reaction [facility] Branch Penicill Propensi Active Anaphylaxis 0 U nivers ins ty to 05-23 ity of adverse 00:00: [place] reaction 00 [facility] Branch Penicill Propensi Active Anaphylaxis, [facility] ins ty to Rash 02-11 [facility] adverse 00:00: Medical reaction 00 [place] s Aspirin Drug Active Rash [facility] ([place] Allergy 02-11 [facility] ine 00:00: Medical Only) 00 Center Erythrom Drug Active Anaphylaxis [facility] ycin Allergy 02-11 [facility] 00:00: Medical 00 Center Adhesive Drug Active Rash [facility] Tape Intolera 04-16 [facility] nce 00:00: Medical 00 [place] Fish Propensi Active Hives [facility] Containi ty to 8 (But not [facility] ng adverse 00:00: to Medical Products reaction 00 shrimp, Cente r s pt denies iodine allergy) Codeine Propensi Active Hives [facility] Phosphat ty to 3-06 [facility] e adverse 00:00: Medical reaction 00 Center s NO KNOWN Drug Active Univers ALLERGIE Class ity of S [facility] Social History Social Habit Start Date Stop Date Quantity Comments Source Alcohol intake 2014-07-11 2014-07-[address] [facility] [address] [facility] es 00:00:00 00:00:00 non-drinker of Medical Ce nter alcohol (finding) Tobacco Comment 2014-05-29 2014-05-29 Quit > [address] [facility]00 [facility] Sex Assigned At [birth year] BENITA Price kes 00:00:00 00:00:00 Medical Center Smoking Status Start Date Stop Date Source Unknown if ever smoked [facility] Former smoker 2014-05-17 00:00:00 2014-05-17 00:00:00 [facility] Medications Ordered Filled Start Stop Current Ordering Indication Dosage Frequency Signature Comments Components Source Medication Medication Date Date Medication? Clinician (SIG) Name Name casirivimab 2020- No [id number] 1200mg 1,200 mg, Univers -imdevimab 05-24 Subcutaneo it y of (REGEN-COV 00:30: 23:09 [place], ONCE, [place] (EUA[place] 00 :00 1 dose, Medical injection Anabel 05/23/21 Bran ch 1,200 mg at 1930, Routine casirivimab 2020- No [id number] 1200mg 1,200 mg, Univers -imdevimab 05-24 Subcutaneo it y of (REGEN-COV 00:30: 23:09 us, ONCE, [place] (EUA)) 00 :00 1 dose, Medical injection Anabel 05/23/21 Bran ch 1,200 mg at 1930, Routine ciprofloxac 2013-09 Yes 500mg Q.5D Take [address] in (CIPRO) 0-28 mg by [facility] 500 MG 11:03: mouth 2 Medical tablet 22 (two) Center times daily. olmesartan 2013-09 Yes 40mg QD Take [address] (BENICAR) 0-28 by mouth [facility] 40 MG 11:02: daily. Medical tablet 42 Center clopidogrel 2013-09 Yes 75mg QD Take [address] [address] (PLAVIX) 75 0-28 by mouth Luke s mg tablet 11:02: daily. Medica l 42 Center traZODone 2013-09 Yes 100mg QD Take [address] (DESYREL) 0-28 mg by [facility] 100 MG 11:02: mouth Medical tablet 42 nightly. Center nitroglycer 2013-[address] 0[address] in 0-28 mg under [facility] (NITROSTAT) 11:02: the tongue Medical 0.4 MG SL 42 every 5 Center tablet (five) minutes as needed for Chest pain. atorvastati 2013-09 Yes 40mg QD Take [address] n (LIPITOR) 0-28 by mouth Luke s 40 MG 11:02: daily. Medical tablet 42 Center isosorbide 2013-09 Yes 30mg QD Take [address] mononitrate 0-28 by mouth Luke s (IMDUR) 30 11:02: daily. Medic al MG 24 hr 42 Center tablet ALPRAZolam 2013-09 Yes 1mg Take [address] (XANAX) 1 0-28 by mouth [facility] MG tablet 11:02: as needed Med ical 42 for Center Anxiety. promethazin 2013-09 Yes 25mg Take [address] [facility] e 0-28 by mouth [facility] (PHENERGAN) 11:02: as needed M edical 25 MG 42 for Center tablet Nausea. sertraline 2013-09 Yes 150mg QD Take [address] (ZOLOFT) 0-28 mg by [facility] 100 MG 11:02: mouth Medical tablet 42 daily. Center minocycline 2013-09 Yes 100mg Q.5D Take [address] (MINOCIN,DY 0-28 mg by [facility] NACIN) 100 11:02: mouth 2 Medi santy MG capsule 42 (two) Center times daily. HYDROcodone 2013-09 Yes 1{tbl} Take [address] -acetaminop 0-28 tablet by Azar es hen (NORCO 11:02: mouth Medica l 10-325) 42 every 6 Center 10-325 mg (six) per tablet hours as needed for Pain. FOLIC 2013-09 Yes 1{tbl} QD Take [address] ACID/MV,FE, 0-28 tablet by Azar es OTHER MIN 11:02: mouth Medical (CENTRUM 42 daily. Center ORAL) ascorbic 2013-09 Yes 1000mg QD Take 1,[address] acid 0-28 mg by [facility] (VITAMIN C) 11:02: mouth Medic al 1000 MG 42 daily. Center tablet Vital Signs Vital Name Observation Time Observation Value Comments Source Systolic blood 2021-05-23 23:54:00 143 mm[Hg] Univer sity of pressure [facility] Diastolic blood 2021-05-23 23:54:00 70 mm[Hg] Unive rsity of [facility] Heart rate 2021-05-23 23:54:00 83 /min [facility] Body temperature 2021-05-23 23:54:00 36.33 [facility] Respiratory rate 2021-05-23 23:54:00 24 /min [facility] Oxygen saturation in 2021-05-23 23:54:00 95 /min [facility] Arterial blood by [facility] Pulse oximetry [place] Body height 2021-05-23 23:08:00 157.5 cm [facility] Body weight 2021-05-23 23:08:00 83.915 kg [facility] BMI 2021-05-23 23:08:00 33.84 kg/m2 [facility] Procedures Procedure Date / Time Performed Performing Clinician Sour e [id number] CONSENT 2021-05-23 05:01:00 [facility] Start End Encounter Admission Attending Care Care Encounter Source Date/Time Date/Time Type Type Clinicians Facility Department ID 2021-05-23 2021-05-23 Outpatient R EDI [facility] [id number] Univers 18:00:00 18:00:00 JERALD alcaraz [facility] 2021-05-23 2021-05-23 Nurse Therapy, Adc Covid Infusion [facility] [id number] Univers 14:15:58 15:15:58 Visit Jerald Daley [id number] ity of [id number] [id number] [facility] 0[address] Branch 2021-05-23 2021-05-23 Orders Doctor RAMIREZ [id number] Univers 00:00:00 00:00:00 Only UnassignedHENRY [id number] [facility] [place] [facility] [id number] Narinder as [phone] [facility] 009 Branch Results This patient has no known results.
[2022-04-08] MEDS ORDERED: ACETAMINOPHEN 500 MG TAB ONE (21:19)
[2022-04-08] MEDS ORDERED: NA CHLORIDE 0.9% 250 ML ONE (21:19)
[2022-04-08] MEDS ORDERED: NA CHLORIDE 0.9% 3,000 ML ONE (21:19)
[2022-04-08] MEDS ORDERED: CEFTRIAXONE 1000 MG/VIAL ONE (21:19)
[2022-04-08] MEDS ORDERED: VANCOMYCIN 1 GM/VIAL ONE (21:19)
[2022-04-08 21:20] LABS: Absolute Lymphocytes (CBC) 0.1 K/uL (0.7-4.9); Hematocrit 37.2 % (36.0-45.0); Lymphocytes % 2.6 % (15.3-44.8); MPV 8.4 fL (7.6-11.3); RBC Red Blood Cell Count 4.43 M/uL (3.86-4.86)
[2022-04-08 21:24] LABS: Blood Morphology Comment NOT SEEN (NOT SEEN); Platelet Estimate ADEQ; White Blood Cell Scan OK (OK)
[2022-04-08 21:26] LABS: Protime INR 1.25
[2022-04-08 21:41] LABS: Albumin 2.8 g/dL (3.4-5.0); Potassium 3.4 mmol/L (3.5-5.1); Protein, Total 7.5 g/dL (6.4-8.2)
[2022-04-08 23:27] LABS: Urine Bilirubin Negative (Negative); Urine Blood 3+ (Negative); Urine Clarity Turbid (Clear); Urine Color Yellow (Yellow); Urine Glucose Negative (Negative); Urine Protein 2+ (Negative); Urine Urobilinogen 0.2 mg/dL (0.2-1.0); Urine pH 5.5 (5.0-7.0)
[2022-04-08 23:33] LABS: Urine RBC <5 /HPF (None Seen)
[2022-04-08 23:34] LABS: Urine Bacteria <20 /HPF (<20)
--- NOTE | 2022-04-09 01:25 | ER ---
Nurse's Notes [facility] Is[facility] Name: Brittany Barnes Age: 62 yrs Sex: Female : 1960 Arrival Date: 04/08/2022 Time: 18:52 Bed 19 Private MD: Crispin Crenshaw T Diagnosis: Pyelonephritis acute;Dyspnea, unspecified Presentation: 04/08 19:01 Chief complaint: Lower abdominal pain, N/V/D, and body aches x 3 days. Denies hb fever/SOB/cough. Tolerating fluids. 19:03 Coronavirus screen: Client presents with at least one sign or symptom that may indicate hb coronavirus-19. Standard/surgical mask placed on the client. Provider contacted for isolation considerations. Ebola Screen: No symptoms or risks identified at this time. Initial Sepsis Screen: Does the patient meet any 2 criteria? No. Patient's initial sepsis screen is negative. Does the patient have a suspected source of infection? No. Patient's initial sepsis screen is negative. Risk Assessment: Do you want to hurt yourself or someone else? Patient reports no desire to harm self or others. Onset of symptoms was April 05, 2022. 19:03 Method Of Arrival: Wheelchair hb 19:03 Acuity: NILTON 3 hb Triage Assessment: 19:04 General: Appears in no apparent distress. Behavior is calm, cooperative. Pain: Pain hb currently is 8 out of 10 on a pain scale. Neuro: Level of Consciousness is awake, alert, obeys commands, Oriented to person, place, time, situation. GI: Reports lower abdominal pain, diarrhea, nausea, vomiting. Historical: - Allergies: 19:04 Aspirin; hb 19:04 Codeine; hb 19:04 Erythromycin; hb 19:04 PENICILLINS; hb 19:04 Fish Containing Products; hb - PMHx: 19:04 "clotting disorder, i bleed easily"; "one small kidney"; High Cholesterol; hb Hypertension; Myocardial infarction; one small kidney, on normal; - Immunization history:: Adult Immunizations up to date, Client reports having NOT received the Covid vaccine. Flu vaccine is not up to date. - Social history:: Smoking status: Patient reports the use of cigarette tobacco products, smokes one-half pack cigarettes per day. Screenin:32 Abuse screen: Denies threats or abuse. Nutritional screening: Has had N/V for 3 or more ll3 days. Tuberculosis screening: No symptoms or risk factors identified. 04/09 02:28 Fall Risk No fall in past 12 months (0 pts). No secondary diagnosis (0 pts). IV access ll3 (20 points). Ambulatory Aid- None/Bed Rest/Nurse Assist (0 pts). Gait- Weak (10 pts.). Mental Status- Oriented to own ability (0 pts). Total Brito Fall Scale indicates Low Risk Score (25-44 pts). Fall prevention measures have been instituted. Side Rails Up X 2 Placed close to Nursing Station Frequent Obs/Assesments occuring Family Present and informed to notify staff if they need to leave bedside As available Patient and Family Educated on Fall Prevention Program and strategies. Assessment: 04/08 20:32 General: Appears ill, Behavior is calm, cooperative, Reports fever for On Thursday and ll3 thursday. feeling ill for fatigue for. Pain: Denies pain. Neuro: Level of Consciousness is awake, alert, obeys commands, Oriented to person, place, time, situation, Reports weakness. Respiratory: Respiratory effort is even, unlabored, Respiratory pattern is regular, symmetrical. GI: Abdomen is round non-distended, Reports diarrhea, intolerance of fluids, intolerance of food, nausea, vomiting, since Thursday Patient currently denies abdominal pain. Derm: Skin is clammy. 21:30 Reassessment: No changes from previously documented assessment. Patient and/or family ll3 updated on plan of care and expected duration. Pain level reassessed. Patient is alert, oriented x 3, equal unlabored respirations, skin warm/dry/pink. 23:00 Reassessment: No changes from previously documented assessment. Patient and/or family ll3 updated on plan of care and expected duration. Pain level reassessed. Patient is alert, oriented x 3, equal unlabored respirations, skin warm/dry/pink. 04/09 00:06 Reassessment: No changes from previously documented assessment. Patient and/or family ll3 updated on plan of care and expected duration. Pain level reassessed. Patient is alert, oriented x 3, equal unlabored respirations, skin warm/dry/pink. 01:00 Reassessment: No changes from previously documented assessment. Patient and/or family ll3 updated on plan of care and expected duration. Pain level reassessed. Patient is alert, oriented x 3, equal unlabored respirations, skin warm/dry/pink. 01:00 Reassessment: No changes from previously documented assessment. Patient and/or family ll3 updated on plan of care and expected duration. Pain level reassessed. Patient is alert, oriented x 3, equal unlabored respirations, skin warm/dry/pink. Vital Signs: 04/08 19:03 BP 169 / 65; Pulse 104; Resp 18; Temp 98.7; Pulse Ox 97% on R/A; Weight 95.25 kg (R); hb Height 5 ft. 10 in. (177.80 cm); Pain 6/10; 20:30 BP 183 / 87; Pulse 143; Resp 40; Pulse Ox 96% on R/A; ll3 22:00 BP 135 / 65; Pulse 129; Resp 40; Pulse Ox 95% on R/A; ll3 23:30 BP 108 / 66; Pulse 123; Resp 28; Pulse Ox 95% on R/A; ll3 04/09 02:02 BP 104 / 68; Pulse 114; Resp 32; Pulse Ox 94% on R/A; ll3 04/08 19:03 Body Mass Index 30.13 (95.25 kg, 177.80 cm) hb ED Course: 04/08 18:52 Patient arrived in ED. as 18:52 Crispin Crenshaw MD is Private Physician. as 19:04 Triage completed. hb 19:04 Arm band placed on. hb 19:40 Andres Montana MD is Attending Physician. kdr 20:32 Patient has correct armband on for positive identification. Bed in low position. Call ll3 light in reach. Side rails up X 1. 21:43 Notified ED physician of a critical lab result(s). CO2 of 13, Lactate 2.2 Dr Montana bb notified. 22:18 Darion Garcia, [facility] is Primary Nurse. ll3 22:22 Chest Abd Pelvis Wo Con In Process Unspecified. EDMS 04/09 00:00 Straight cath inserted, using sterile technique, 16 Fr. Specimen obtained. Returned ll3 cloudy urine. Patient tolerated well. 00:30 [place] cath inserted, using sterile technique, 16 Fr., by vt, balloon inflated, to ll3 gravity drainage, clamped. returned cloudy urine. Patient tolerated well. 01:22 Omitogun, Bradley, MD is Hospitalizing Provider. kdr 02:28 No provider procedures requiring assistance completed. Patient admitted, IV remains in ll3 place. Administered Medications: 04/08 21:28 Drug: Rocephin - (cefTRIAXone) 1 grams Route: IVPB; Infused Over: 30 mins; Site: right ll3 antecubital; 22:18 Follow up: Response: No adverse reaction; IV Status: Completed infusion; IV Intake: [id number] 21:29 Drug: Acetaminophen 1000 mg Route: PO; ll3 22:18 Follow up: Response: No adverse reaction ll3 21:29 Drug: NS 0.9% (30 ml/kg) 30 ml/kg Route: IV; Rate: bolus; Site: right antecubital; ll3 21:29 Drug: vancoMYCIN 1 grams Route: IVPB; Infused Over: 2 hrs; Site: right antecubital; ll3 22:18 Drug: NS 0.9% (30 ml/kg) 30 ml/kg Route: IV; Rate: bolus; Site: right antecubital; ll3 23:33 Drug: NS 0.9% (30 ml/kg) 30 ml/kg Route: IV; Rate: bolus; Site: right antecubital; ll3 04/09 01:20 Drug: XANax (alprazolam) Tablet 0.5 mg Route: PO; ll3 Medication: 02:29 VIS not applicable for this client. ll3 Intake: 04/08 22:18 IV: 10ml; Total: 10ml. ll3 Outcome: 04/09 01:24 Decision to Hospitalize by Provider. kdr 02:11 Patient left the ED. bb 02:28 Admitted to Med/surg accompanied by nurse, via stretcher, room 230, with chart, Report ll3 called to [facility] Marie 02:28 Condition: stable 02:28 Instructed on the need for admit, Demonstrated understanding of instructions. Signatures: Dispatcher [employer] EDMS Andres Montana MD MD kdr Martinez, Amelia as Ballard, Brenda RN RN bb Eula Sullivan RN RN hb Loubet, Lynsea, RN RN ll3 Corrections: (The following items were deleted from the chart) 04/08 19:04 19:01 Chief complaint: Lower abdominal pain and N/V/D x 3 days. Denies fever/SOB/cough. hb Tolerating fluids. hb
--- NOTE | 2022-04-09 01:25 | EDPHYS ---
Physician Documentation [facility] Name: Brittany Barnes Age: 62 yrs Sex: Female : 1960 Arrival Date: 04/08/2022 Time: 18:52 Bed 19 Private MD: Crispin Crenshaw T ED Physician Andres Montana HPI: 04/09 19:14 This 62 yrs old Female presents to ER via Wheelchair with complaints of kdr Nausea/Vomiting/Diarrhea, Abdominal Pain. 19:14 The patient presents to the emergency department with nausea, vomiting, diarrhea, kdr abdominal pain, of the suprapubic area, right lower quadrant and left lower quadrant. Onset: The symptoms/episode began/occurred gradually, 3 day(s) ago. Possible causes: unknown. The symptoms are aggravated by nothing. The symptoms are alleviated by nothing. Associated signs and symptoms: The patient has no apparent associated signs or symptoms. Severity of symptoms: At their worst the symptoms were moderate severe just prior to arrival. The patient has not experienced similar symptoms in the past. The patient has not recently seen a physician. 19:14 Today complainingPatient present with nausea. She has been feeling ill for about 3 kdr days. She denies fever or cough or shortness of breath. She is taking fluids without too much difficulty.. Historical: - Allergies: 04/08 19:04 Aspirin; hb 19:04 Codeine; hb 19:04 Erythromycin; hb 19:04 PENICILLINS; hb 19:04 Fish Containing Products; hb - PMHx: 19:04 "clotting disorder, i bleed easily"; "one small kidney"; High Cholesterol; hb Hypertension; Myocardial infarction; one small kidney, on normal; - Immunization history:: Adult Immunizations up to date, Client reports having NOT received the Covid vaccine. Flu vaccine is not up to date. - Social history:: Smoking status: Patient reports the use of cigarette tobacco products, smokes one-half pack cigarettes per day. ROS: 04/09 19:14 Constitutional: Negative for fever, chills, and weight loss, Eyes: Negative for injury, kdr pain, redness, and discharge, Neck: Negative for injury, pain, and swelling, Cardiovascular: Negative for chest pain, palpitations, and edema, Back: Negative for injury and pain, : Negative for injury, bleeding, discharge, and swelling, MS/Extremity: Negative for injury and deformity, Skin: Negative for injury, rash, and discoloration, Neuro: Negative for headache, weakness, numbness, tingling, and seizure activity. Psych: Negative for depression, anxiety, suicide ideation, homicidal ideation, and hallucinations, Allergy/Immunology: Negative for hives, rash, and allergies, Endocrine: Negative for neck swelling, polydipsia, polyuria, polyphagia, and marked weight changes, Hematologic/Lymphatic: Negative for swollen nodes, abnormal bleeding, and unusual bruising. Respiratory: Positive for shortness of breath, Negative for hemoptysis, orthopnea, pleurisy, sputum production, wheezing. Abdomen/GI: Positive for abdominal pain, nausea, vomiting, and diarrhea, abdominal cramps, of the suprapubic area, right lower quadrant and left lower quadrant. Exam: 04/08 21:14 ECG was reviewed by the Attending Physician. kdr 04/09 19:14 Constitutional: This is a well developed, well nourished patient who is awake, alert, kdr and in no acute distress. Head/Face: Normocephalic, atraumatic. Eyes: Pupils equal round and reactive to light, extra-ocular motions intact. Lids and lashes normal. Conjunctiva and sclera are non-icteric and not injected. Cornea within normal limits. Periorbital areas with no swelling, redness, or edema. Neck: Trachea midline, no thyromegaly or masses palpated, and no cervical lymphadenopathy. Supple, full range of motion without nuchal rigidity, or vertebral point tenderness. No Meningismus. Chest/axilla: Normal chest wall appearance and motion. Nontender with no deformity. No lesions are appreciated. Cardiovascular: Regular rate and rhythm with a normal S1 and S2. No gallops, murmurs, or rubs. Normal PMI, no JVD. No pulse deficits. Respiratory: Lungs have equal breath sounds bilaterally, clear to auscultation and percussion. No rales, rhonchi or wheezes noted. No increased work of breathing, no retractions or nasal flaring. Abdomen/GI: Soft, non-tender, with normal bowel sounds. No distension or tympany. No guarding or rebound. No evidence of tenderness throughout. Back: No spinal tenderness. No costovertebral tenderness. Full range of motion. Skin: Warm, dry with normal turgor. Normal color with no rashes, no lesions, and no evidence of cellulitis. MS/ Extremity: Pulses equal, no cyanosis. Neurovascular intact. Full, normal range of motion. Neuro: Awake and alert, GCS 15, oriented to person, place, time, and situation. Cranial nerves II-XII grossly intact. Motor strength 5/5 in all extremities. Sensory grossly intact. Cerebellar exam normal. Normal gait. Psych: Awake, alert, with orientation to person, place and time. Behavior, mood, and affect are within normal limits. Vital Signs: 04/08 19:03 BP 169 / 65; Pulse 104; Resp 18; Temp 98.7; Pulse Ox 97% on R/A; Weight 95.25 kg (R); hb Height 5 ft. 10 in. (177.80 cm); Pain 6/10; 20:30 BP 183 / 87; Pulse 143; Resp 40; Pulse Ox 96% on R/A; ll3 22:00 BP 135 / 65; Pulse 129; Resp 40; Pulse Ox 95% on R/A; ll3 23:30 BP 108 / 66; Pulse 123; Resp 28; Pulse Ox 95% on R/A; ll3 04/09 02:02 BP 104 / 68; Pulse 114; Resp 32; Pulse Ox 94% on R/A; ll3 04/08 19:03 Body Mass Index 30.13 (95.25 kg, 177.80 cm) hb MDM: 01:24 Patient medically screened. kdr 19:14 Data reviewed: vital signs, nurses notes, lab test result(s), radiologic studies. kdr Counseling: I had a detailed discussion with the patient and/or guardian regarding: the historical points, exam findings, and any diagnostic results supporting the discharge/admit diagnosis, lab results, radiology results, the need for further work-up and treatment in the hospital. 04/08 20:41 Order name: Blood Culture Adult (2) kdr 04/08 20:41 Order name: CBC with Diff; Complete Time: 21:48 kdr 04/08 20:41 Order name: CMP; Complete Time: 21:48 kdr 04/08 20:41 Order name: Lactate; Complete Time: 21:48 kdr 04/08 20:41 Order name: Protime (+inr); Complete Time: 21:48 kdr 04/08 20:41 Order name: Ptt, Activated; Complete Time: 21:48 [facility] 04/08 20:41 Order name: Urine Culture [facility] 04/08 21:10 Order name: Glucose, Ancillary Testing; Complete Time: 21:16 EDTN 04/08 21:25 Order name: CBC Smear Scan; Complete Time: 21:48 [facility] 04/08 21:50 Order name: Chem 7: Redraw after completion of bolus; Complete Time: 01:28 [facility] 04/08 23:28 Order name: Urinalysis; Complete Time: 00:44 EDTN 04/08 23:30 Order name: COVID-19 SARS RT PCR (Document "Date of Onset" if Symptomatic); Complete bb Time: :04/09 01:16 Order name: Lactate Sepsis 2 HR Follow-up; Complete Time: 01:24 EDTN 04/08 20:41 Order name: Accucheck; Complete Time: 21:05 [facility] 04/08 20:41 Order name: Cardiac monitoring; Complete Time: 21:05 [facility] 04/08 20:41 Order name: EKG - Nurse/Tech; Complete Time: 21:05 [facility] 04/08 20:41 Order name: IV Saline Lock - Large Bore; Complete Time: 21:05 [facility] 04/08 20:41 Order name: Labs collected and sent; Complete Time: 21:05 [facility] 04/08 20:41 Order name: O2 Per Protocol; Complete Time: 21:05 [facility] 04/08 20:41 Order name: O2 Sat Monitoring; Complete Time: 21:05 [facility] 04/08 20:43 Order name: CT Chest, Abdomen, Pelvis - W/Contrast [facility] 04/08 21:50 Order name: Chest Abd Pelvis Wo Con; Complete Time: 19:17 [facility] 04/09 02:08 Order name: ABG Arterial Blood Gas; Complete Time: 19:17 [facility] 04/08 20:41 Order name: Urine Dipstick-Ancillary (obtain specimen); Complete Time: 00:24 [facility] 04/08 23:22 Order name: [place]; Complete Time: 00:24 ll3 EC/26 21:14 Rate is 145 beats/min. Rhythm is regular, Sinus tachycardia with No ectopy. QRS [place] is kdr Normal. ME interval is normal. QRS interval is normal. QT interval is normal. Clinical impression: Sinus tachycardia. Administered Medications: 21:28 Drug: Rocephin - (cefTRIAXone) 1 grams Route: IVPB; Infused Over: 30 mins; Site: right ll3 antecubital; 22:18 Follow up: Response: No adverse reaction; IV Status: Completed infusion; IV Intake: [id number] 21:29 Drug: Acetaminophen 1000 mg Route: PO; ll3 22:18 Follow up: Response: No adverse reaction ll3 21:29 Drug: NS 0.9% (30 ml/kg) 30 ml/kg Route: IV; Rate: bolus; Site: right antecubital; ll3 21:29 Drug: vancoMYCIN 1 grams Route: IVPB; Infused Over: 2 hrs; Site: right antecubital; ll3 22:18 Drug: NS 0.9% (30 ml/kg) 30 ml/kg Route: IV; Rate: bolus; Site: right antecubital; ll3 23:33 Drug: NS 0.9% (30 ml/kg) 30 ml/kg Route: IV; Rate: bolus; Site: right antecubital; ll3 04/09 01:20 Drug: XANax (alprazolam) Tablet 0.5 mg Route: PO; ll3 Disposition Summary: 04/09/22 01:24 Hospitalization Ordered Hospitalization Status: Inpatient Admission kdr Provider: Bradley Hernandez Location: Telemetry/MedSurg (Inpatient) kdr Condition: Fair kdr Problem: new kdr Symptoms: have improved kdr Bed/Room Type: Standard kdr Room Assignment: 230(04/09/22 01:46) cg Diagnosis - Pyelonephritis acute kdr - Dyspnea, unspecified kdr Forms: - Medication Reconciliation Form kdr - SBAR form kdr Signatures: Dispatcher [employer] EDMS Andres Montana MD MD kdr Stephanie Berger, RN RN cg Eula Sullivan RN RN Darion Carlos RN RN ll3 Felicity Wilkes PA PA sb3 Corrections: (The following items were deleted from the chart) 04/08 21:50 20:47 Chest Abdomen Pelvis W Cont ordered. EDTN EDMS 23:33 23:19 URINALYSIS+U.LAB.BRZ ordered. EDTN EDTN 04/09 01:46 01:24 kdr cg
[2022-04-09] MEDS ORDERED: ALPRAZOLAM 0.5 MG TABLET ONE (01:29)
--- NOTE | 2022-04-09 01:34 | P.HP ---
Certification for Inpatient Patient admitted to: Inpatient With expected LOS: <2 Midnights Patient will require the following post-hospital care: None Practitioner: I am a practitioner with admitting privileges, knowledge of patient current condition, hospital course, and medical plan of care. Services: Services provided to patient in accordance with Admission requirements found in Title 42 Section 412.3 of the Code of Federal Regulations Patient History Date of Service: 04/09/22 Primary Care Provider: Flower Reason for admission: Pyelonephritis History of Present Illness: Patient is a 58 y/o F with HTN, HLD, asthma, and anxiety who presented to the ED with complaints of n/v/d and generalized lower abdominal pain for 3 days. She was noted to be tachycardic and tachypneic upon arrival. Labs significant for Na 130, K 3, Cr 3.63, CO2 13, neutrophils 95, urine positive for UTI. CT abd pelv showed "enlarged liver with associated fatty change. Marked splenic enlargement. 5 mm calculus left uterovescular junction with associated moderate left hydronephrosis and hydroureter. Marked left perinephric stranding." She was given IVF and started on vanc and rocephin. She is admitted for further evaluation and treatment. Allergies aspirin Allergy (Intermediate, Verified 12/31/16 08:45) Rash Fish Containing Products Allergy (Verified 12/31/16 08:45) Unknown Bees Allergy (Severe, Uncoded 12/31/16 08:45) Anaphylaxis Codeine Allergy (Severe, Uncoded 12/31/16 08:45) Shortness of breath Adhesives Allergy (Uncoded 12/31/16 08:45) Unknown any penic Allergy (Uncoded 01/12/18 18:33) Unknown Erythromycin Allergy (Uncoded 12/31/16 08:45) Anaphylaxis PENICILLINS Allergy (Uncoded 12/31/16 08:45) Anaphylaxis Home medications list reviewed: Yes Home Medications: Alprazolam [Xanax] 1 mg PO PRN PRN 08/24/15 Amlodipine Besylate 10 mg PO DAILY 08/24/15 Ascorbic Acid [Vitamin C] 1,000 mg PO DAILY 08/24/15 Atorvastatin Calcium 40 mg PO DAILY 08/24/15 Clopidogrel Bisulfate [Plavix] 75 mg PO DAILY 08/24/15 Isosorbide Mononitrate [Isosorbide Mononitrate ER] 30 mg PO DAILY 08/24/15 Multivitamin [Daily Multivitamin] 1 each PO DAILY 08/24/15 Nitroglycerin [Nitrostat] 0.4 mg SL PRN PRN 08/24/15 Promethazine HCl 25 mg PO PRN PRN 08/24/15 Sertraline HCl 150 mg PO DAILY 08/24/15 Trazodone HCl [Desyrel] 100 mg PO PRN PRN 08/24/15 Montelukast [Singulair] 10 mg PO DAILY 12/30/16 ramipriL [Altace] 5 mg PO DAILY 12/30/16 Sulfamethoxazole/Trimethoprim [Bactrim Ds Tablet] 1 each PO BID #12 tablet 12/31/16 Tramadol HCl/Acetaminophen [Ultracet Tablet] 1 each PO Q4H #30 tablet 12/31/16 - Past Medical/Surgical History Diabetic: No -: Hypertension -: Hyperlipidemia -: ND -: Anxiety -: Asthma -: Double Bypass -: Cholecystectomy -: Appendectomy Psychosocial/ Personal History: Patient lives at home with her granddaughter. - Social History Smoking Status: Former smoker Alcohol use: No CD- Drugs: No Caffeine use: Yes Place of Residence: Home Review of Systems Gastrointestinal: Nausea, Vomiting, Abdominal Pain, Diarrhea Physical Examination - Physical Exam General: Alert, In no apparent distress, Obese HEENT: Atraumatic, PERRLA, EOMI, Sclerae nonicteric Neck: Supple, 2+ carotid pulse no bruit, No LAD, Without JVD or thyroid abnormality Respiratory: Clear to auscultation bilaterally, Normal air movement, Other (tachypneic) Cardiovascular: Regular rate/rhythm, Normal S1 S2 Gastrointestinal: Normal bowel sounds, Tenderness Musculoskeletal: No tenderness Integumentary: No rashes Neurological: Normal speech, Normal strength at 5/5 x4 extr, Normal tone, Normal affect - Studies Laboratory Data (last 24 hrs) 04/09/22 00:46: Sodium 130 L, Potassium 3.0 L, BUN 59 H, Creatinine 3.63 H, Glucose 124 H 04/08/22 21:00: PT 13.8 H, INR 1.25, APTT 35.3 04/08/22 21:00: Sodium 126 L, Potassium 3.4 L, BUN 62 H, Creatinine 3.93 H, Glucose 172 H, Total Bilirubin 1.0, AST 34, ALT 26, Alkaline Phosphatase 129 H 04/08/22 21:00: WBC 4.5, Hgb 12.5, Hct 37.2, Plt Count 159 Assessment and Plan - Problems (Diagnosis) (1) Acute pyelonephritis Current Visit: Yes Status: Acute (2) PJ (acute kidney injury) Current Visit: Yes Status: Acute (3) Hypertension Current Visit: Yes Status: Chronic Qualifiers: Hypertension type: primary hypertension Qualified Code(s): I10 - Essential (primary) hypertension (4) Hypokalemia Current Visit: Yes Status: Acute (5) Nephrolithiasis Current Visit: Yes Status: Acute (6) Metabolic acidosis Current Visit: Yes Status: Acute - Plan -Continue ceftriaxone for acute pyelonephritis. Follow urine cultures. Received vanc in ED. -Urology consulted for nephrolithiasis with hydronephrosis -Metabolic acidosis present and likely secondary to acute renal failure. amp of bicarb ordered. repeat ABG following AM labs -Continue IV fluids -IV pain medications as needed -Monitor and replete electrolytes per protocol -Lovenox for VTE ppx -Full code Discharge Plan: Home Plan to discharge in: 48 Hours - Advance Directives Does patient have a Living Will: No Does patient have a Durable POA for Healthcare: No - Code Status/Comfort Care Code Status Assessed: Yes (Full) Critical Care: No Time Spent Managing Pts Care (In Minutes): 50
[2022-04-09] MEDS ORDERED: ONDANSETRON 4 MG/2 ML VIAL IV PRN (01:57)
[2022-04-09] MEDS ORDERED: SODIUM BICARB IV ONE (02:01)
[2022-04-09 02:07] LABS: Arterial Blood Carboxyhemoglob 1.2 % (0-1.5); Blood Gas Oxyhemoglobin 89.2 % (94-97); Blood O2 Saturation 91.5 % (92-98.5)
[2022-04-09] MEDS ORDERED: SODIUM BICARB 50 MEQ/50ML VIAL IV ONE (02:07)
[2022-04-09] MEDS: NA CHLORIDE 0.9% 1,000 ML IV SCH ×3 (02:09→16:38)
[2022-04-09 02:27] VITALS: BMI 27.7
[2022-04-09 06:09] LABS: Absolute Lymphocytes (CBC) 0.3 K/uL (0.7-4.9); Hematocrit 30.8 % (36.0-45.0); Lymphocytes % 2.2 % (15.3-44.8); MCV 84.2 fL (80-100); MPV 8.8 fL (7.6-11.3); RBC Red Blood Cell Count 3.66 M/uL (3.86-4.86)
[2022-04-09 06:24] LABS: Potassium 3.2 mmol/L (3.5-5.1)
[2022-04-09 06:25] LABS: Magnesium 1.8 mg/dL (1.8-2.4)
[2022-04-09 07:18] LABS: Blood Morphology Comment NOT SEEN (NOT SEEN); Platelet Estimate ADEQ
[2022-04-09] MEDS ORDERED: MAGNESIUM SULFATE 1 gm IVPB 1 GM/100 ML BAG IV ONE (07:53)
[2022-04-09] MEDS ORDERED: POTASSIUM CL SA 10 MEQ TAB PO ONE ×2 (08:00→16:06)
[2022-04-09] MEDS ORDERED: ENOXAPARIN 40 MG/0.4 ML SQ SCH (09:00)
[2022-04-09] MEDS: ENOXAPARIN 30 MG/0.3 ML SQ SCH (09:54)
--- NOTE | 2022-04-09 11:06 | RAD REPORT ---
EXAM DESCRIPTION: CT - Chest Abd Pelvis Wo Con - 04/09/2022 6:54 am CLINICAL HISTORY: 62 years Female SOB COMPARISON: None TECHNIQUE: Images were obtained in axial, sagittal, and coronal planes. No intravenous or oral contr ast was administered. This exam was performed according to our departmental dose-optimization program which includes use of Automated Exposure Control, adjustment of the mA and/or kV according to patient size and/or use of i terative reconstruction technique. FINDINGS: CT chest: No dilatation aortic root. No pericardial or pleural effusions bilaterally. No a denopathy. No lung parenchymal infiltrates or nodules seen. No pneumothorax. No acute osseous abnorma lity. Prior median sternotomy. Height of the thoracic vertebral bodies is intact. Satisfactory alignm ent noted. Costovertebral junctions intact all levels. CT abdomen pelvis: Decreased attenuation involving the liver consistent with fatty change. Enlarged r ight lobe liver. Spleen is enlarged measuring 18.3 cm in anterior posterior dimension. Prior cholecys tectomy. Unremarkable pancreas and adrenal glands bilaterally. Atrophic right kidney with nonobstruct ing calcifications present. No hydronephrosis seen. Right renal cyst. Compensatory enlargement left k idney with moderate left hydronephrosis and hydroureter. Marked left perinephric stranding. 5 mm calc ulus left ureterovesicular junction. Additional nonobstructing 1.5 cm calyceal calcification posterio r left kidney. Otherwise unremarkable bladder. Atrophic uterus. 8.5 x 5.3 cm lobular right pelvic mas s. Ovarian lesion is suspected. Anterior cystic component. Posterior complex cystic component. Append ix not well identified however no secondary signs for appendicitis. No bowel obstruction, perforation , or inflammation. No acute osseous abnormality. IMPRESSION: No localizing intrathoracic abnormality. Enlarged liver with associated fatty change. Marked splenic enlargement. 5 mm calculus left ureterove sicular junction with associated moderate left hydronephrosis and hydroureter. Marked left perinephri c stranding. 8.5 cm complex right ovarian lesion with cystic and complex cystic components noted. Correlation with pelvic ultrasound needed for further characterization. Ovarian neoplasm should be excluded. Electronically signed by: Karina Loaiza MD 04/08/2022 11:03 PM CDT Due to temporary technical issues with the PACS/Fluency reporting system, reports are being signed by the in house radiologists without review as a courtesy to insure prompt reporting. The interpreting radiologist is fully responsible for the content of the report.
[2022-04-09] MEDS: ALBUTEROL 2.5 MG/3 ML NEB SOL NEB PRN (14:25)
--- NOTE | 2022-04-09 16:31 | EKG ---
Test Date: 2022-04-08 Test Time: 20:48:16 Portable Pinch Riveter: CHAITANYA MEASUREMENT RESULTS: Intervals: Rate: 145 TN: 140 QRSD: 76 QT: 264 QTc: 410 [place]: P: 43 TN: 140 QRS: 93 T: 48 INTERPRETIVE STATEMENTS: Sinus tachycardia Possible Left atrial enlargement Rightward axis Borderline ECG Compared to ECG 05/21/2019 15:31:22 Right-axis deviation now present Sinus rhythm no longer present Left posterior fascicular block no longer present ST (T wave) deviation no longer present Prolonged QT interval no longer present Electronically Signed On 04-09-22 16:30:26 CDT by Ashu Gonzales
[2022-04-09] MEDS ORDERED: ALPRAZOLAM 1 MG TABLET PO ONE (17:57)
[2022-04-09] MEDS ORDERED: CEFTRIAXONE 1,000 MG in NA CHLORIDE 0.9% 50 ML IVPB SCH (20:00)
[2022-04-10] MEDS: NA CHLORIDE 0.9% 1,000 ML IV SCH ×3 (02:08→16:28)
[2022-04-10] MEDS: MORPHINE 2 MG/ML SYR IV PRN ×2 (02:12→17:19)
[2022-04-10] MEDS: ALBUTEROL 2.5 MG/3 ML NEB SOL NEB PRN (02:35)
[2022-04-10 04:12] LABS: Absolute Lymphocytes (CBC) 0.6 K/uL (0.7-4.9); Hematocrit 30.6 % (36.0-45.0); Lymphocytes % 3.5 % (15.3-44.8); MCV 85.7 fL (80-100); MPV 8.7 fL (7.6-11.3); RBC Red Blood Cell Count 3.57 M/uL (3.86-4.86)
[2022-04-10 04:34] LABS: Magnesium 2.2 mg/dL (1.8-2.4); Potassium 3.6 mmol/L (3.5-5.1)
[2022-04-10 06:05] LABS: Arterial Blood Carboxyhemoglob 1.1 % (0-1.5); Blood Gas Oxyhemoglobin 86.9 % (94-97); Blood O2 Saturation 88.9 % (92-98.5)
[2022-04-10] MEDS ORDERED: POTASSIUM CL SA 10 MEQ TAB PO ONE (09:00)
[2022-04-10] MEDS: ENOXAPARIN 30 MG/0.3 ML SQ SCH (09:27)
[2022-04-10] MEDS: ACETAMINOPHEN 500 MG TAB PO PRN (11:10)
[2022-04-10] MEDS ORDERED: ALPRAZOLAM 1 MG TABLET PO ONE (11:33)
[2022-04-10 12:43] LABS: C.diff Antigen/Toxin Ag neg : Tox neg (NEG : NEG)
[2022-04-10] MEDS: ARFORMOTEROL TARTRATE 15 MCG/2 ML VIAL.NEB NEB SCH ×2 (13:53→19:30)
--- NOTE | 2022-04-10 13:53 | P.PN ---
Subjective Date of Service: 04/10/22 Primary Care Provider: Flower Chief Complaint: Pyelonephritis Subjective: Improving (Patient is a little anxious improving still short of breath history of asthma) Review of Systems General: Weakness Respiratory: Shortness of Breath Physical Examination - Vital Signs Temperature: 98.3 F Blood Pressure: 144/65 Pulse: 110 Respirations: 26 Pulse Ox (%): 93 - Physical Exam General: Alert, Oriented x3, Mild distress Respiratory: Expiratory wheezes Cardiovascular: No edema, Normal S1 S2 - Studies Microbiology Data (last 24 hrs): 04/08/22 21:07 Blood - Blood Blood Culture Gram Stain - Final 04/08/22 21:07 Blood - Blood Gram Stain - Final 04/08/22 21:00 Blood - Blood Blood Culture Gram Stain - Final 04/08/22 21:00 Blood - Blood Gram Stain - Final Assessment And Plan - Current Problems (Diagnosis) (1) Acute pyelonephritis Current Visit: Yes Status: Acute Plan: Patient is 62 years of age admitted with acute pyelonephritis blood cultures are positive/continue with IV antibiotics/nephrology consult 5 mm calculus as stated below at the left ureterovesicular junction associated with hydronephrosis Radiology report detailed below Enlarged liver with associated fatty change. Marked splenic enlargement. 5 mm calculus left ureterovesicular junction with associated moderate left hydronephrosis and hydroureter. Marked left perinephric stranding. 8.5 cm complex right ovarian lesion with cystic and complex cystic components noted. Correlation with pelvic ultrasound needed for further characterization. Ovarian neoplasm should be excluded. Patient is on Rocephin (2) Asthma Current Visit: Yes Status: Acute Plan: Start patient on Brovana Qualifiers: Asthma complication type: unspecified
[2022-04-10] MEDS: CEFTRIAXONE 1,000 MG in NA CHLORIDE 0.9% 50 ML IVPB SCH ×2 (15:00→20:12)
[2022-04-10] MEDS ORDERED: FUROSEMIDE 40 MG/4 ML VIAL IV ONE (18:03)
--- NOTE | 2022-04-10 18:10 | P.PN ---
Date of Service: 04/10/22 Rapid response called at 1800. Patient was noted to be tachypneic and saturating 92% on 11 L NC. Patient awake, alert, oriented, and answering questions appropriately. She has been receiving NS at 150 for bacteremia secondary to nephrolithiasis/pyelonephritis. She does not have a history of CHF. Upon auscultation, crackles/rales noted in all lung gonzalez. No pitting edema noted on lower extremities. Patient was put on bipap, 40 mg IV lasix and stat chest xray ordered. Patient reports feeling better with bipap. Will obtain ABG.
[2022-04-10] MEDS: ALPRAZOLAM 1 MG TABLET PO PRN (18:35)
--- NOTE | 2022-04-10 19:02 | RAD REPORT ---
EXAM DESCRIPTION: RAD - Chest Single View - 04/10/2022 6:28 pm CLINICAL HISTORY: SOB COMPARISON: Portable 05/21/2019, CT chest 04/08/2022 TECHNIQUE: AP portable chest image was obtained 04/10/2022 6:28 pm . FINDINGS: Lung volumes are low. Cardiac silhouette is enlarged. Central vasculature is prominent. In terstitial markings are diffusely increased over comparison. Right-sided pleural fluid has developed. Sternotomy wires are in place. No measurable pleural effusion and no pneumothorax. No acute bony abn ormality seen. No acute aortic findings suspected. IMPRESSION: Moderate CHF/volume overload pattern.
[2022-04-10] MEDS ORDERED: ARFORMOTEROL TARTRATE 15 MCG/2 ML VIAL.NEB ONE (19:33)
[2022-04-10] MEDS: ATORVASTATIN 40 MG TAB PO SCH (20:13)
[2022-04-10] MEDS: PROMETHAZINE INJ 25 MG/ML AMP IV PRN (21:31)
[2022-04-10] MEDS ORDERED: PROMETHAZINE INJ 25 MG/ML AMP ONE (21:38)
[2022-04-11 04:29] LABS: Absolute Lymphocytes (CBC) 0.8 K/uL (0.7-4.9); Hematocrit 31.6 % (36.0-45.0); Lymphocytes % 5.9 % (15.3-44.8); MCV 84.9 fL (80-100); MPV 8.8 fL (7.6-11.3); RBC Red Blood Cell Count 3.72 M/uL (3.86-4.86)
[2022-04-11 04:31] LABS: Magnesium 1.9 mg/dL (1.8-2.4); Potassium 3.2 mmol/L (3.5-5.1)
[2022-04-11] MEDS ORDERED: FUROSEMIDE 20 MG/ 2ML VIAL IV ONE (04:35)
[2022-04-11] MEDS: ARFORMOTEROL TARTRATE 15 MCG/2 ML VIAL.NEB NEB SCH ×2 (08:41→20:00)
[2022-04-11] MEDS ORDERED: POTASSIUM CL SA 10 MEQ TAB PO ONE ×2 (09:00→21:00)
[2022-04-11] MEDS: POTASSIUM CL 40 MEQ in NA CHLORIDE 0.9% 500 ML IV SCH ×3 (09:00→09:10)
[2022-04-11] MEDS: CEFTRIAXONE 1,000 MG in NA CHLORIDE 0.9% 50 ML IVPB SCH ×2 (09:10→21:26)
[2022-04-11] MEDS ORDERED: CEFTRIAXONE 1000 MG/VIAL ONE (09:11)
[2022-04-11] MEDS ORDERED: NA CHLORIDE 0.9% 500 ML ONE (09:36)
--- NOTE | 2022-04-11 10:03 | RAD REPORT ---
EXAM DESCRIPTION: RAD - Chest Single View - 04/11/2022 9:37 am CLINICAL HISTORY: COPD,CHF COMPARISON: Chest Single View dated 04/10/2022; Chest Single View dated 05/21/2019; Chest Pa And Lat (2 Views) dated 09/08/2018; Chest Pa And Lat (2 Views) dated 01/12/2018 FINDINGS: Lines: None. Lungs: Diffuse prominence of the pulmonary interstitium. Atelectasis as a result of the effusions is likely present. Pleural: Bilateral layering pleural effusions. Cardiac: Cardiomegaly. Bones: No acute fractures. Other: Sternotomy. IMPRESSION: No significant change in pulmonary edema compared with 04/10/2022.
[2022-04-11] MEDS: FUROSEMIDE 20 MG/ 2ML VIAL IV SCH (11:19)
[2022-04-11] MEDS ORDERED: Ringers Lactate 1,000 ML IV ONE (12:19)
[2022-04-11] MEDS ORDERED: propofoL 200 MG/20 ML VIAL IV ONE (12:38)
[2022-04-11] MEDS ORDERED: MIDAZOLAM HCL 2 MG/2 ML INJ ONE (12:39)
[2022-04-11] MEDS ORDERED: FENTANYL CITR 100 MCG/2 ML ONE (12:39)
[2022-04-11] MEDS ORDERED: LIDOCAINE 1% MPF 5 ML VIAL ONE (12:40)
[2022-04-11] MEDS ORDERED: ONDANSETRON 4 MG/2 ML VIAL ONE (12:40)
--- NOTE | 2022-04-11 12:50 | P.PN ---
Subjective Date of Service: 04/11/22 Primary Care Provider: Flower Chief Complaint: Pyelonephritis respiratory distress CHF Subjective: Improving (Patient is improving and looking better today on BiPAP required diuretics yesterday) Review of Systems General: Weakness Respiratory: Shortness of Breath Physical Examination - Vital Signs Temperature: 97.6 F Blood Pressure: 158/69 Pulse: 88 Respirations: 24 Pulse Ox (%): 93 - Physical Exam General: Alert, In no apparent distress, Mild distress Respiratory: Crackles/rales Cardiovascular: No edema, Regular rate/rhythm - Studies Microbiology Data (last 24 hrs): 04/08/22 21:00 Blood - Blood Aerobic Blood Culture - Final Gram Neg Ej Klebsiella Pneumoniae 04/08/22 21:00 Blood - Blood Blood Culture Gram Stain - Final 04/08/22 21:00 Blood - Blood Anaerobic Blood Culture - Final Klebsiella Pneumoniae 04/08/22 21:00 Blood - Blood Gram Stain - Final 04/08/22 21:07 Blood - Blood Aerobic Blood Culture - Final Gram Neg Ej Klebsiella Pneumoniae 04/08/22 21:07 Blood - Blood Blood Culture Gram Stain - Final 04/08/22 21:07 Blood - Blood Anaerobic Blood Culture - Final Klebsiella Pneumoniae 04/08/22 21:07 Blood - Blood Gram Stain - Final Assessment And Plan - Current Problems (Diagnosis) (1) Acute pyelonephritis Current Visit: Yes Status: Acute Plan: Pyelonephritis positive blood cultures Klebsiella isolated sensitive to Rocephin secondary to obstructive uropathy Dr. Colin urology has been consulted possible stent placement today labs reviewed patient is mildly hypokalemic mildly anemic patient's white count is improving (2) Asthma Current Visit: Yes Status: Acute Plan: Continue with bronchodilators Qualifiers: Asthma complication type: unspecified (3) CHF (congestive heart failure) Current Visit: Yes Status: Acute Plan: Appears to have volume overload in the x-ray responded well to Lasix continue with low-dose Lasix Qualifiers: Heart failure chronicity: unspecified
[2022-04-11] MEDS ORDERED: HYDRALAZINE HCL 20 MG/ML VIAL IV PRN (12:51)
[2022-04-11] MEDS ORDERED: Phenylephrine HCl 10 MG/ML 1 ML VIAL ONE (13:36)
--- NOTE | 2022-04-11 14:15 | P.BOP ---
Preoperative diagnosis: Obstructive pyelonephritic sepsis with left ureterolithiasis, bilat nephrol Postoperative diagnosis: Same Primary procedure: Cystoscopy with bilateral ureteral stent placement Secondary procedure: Bilateral retrograde pyelographies Estimated blood loss: Negligible Specimen: None Findings: Bilateral hydronephrosis Anesthesia: General Complications: None Drain(s): Other (Bilateral 6 x 26 Hebrew ureteral stent) Transferred to: Recovery Room Condition: Fair
--- NOTE | 2022-04-11 14:17 | RAD REPORT ---
EXAM DESCRIPTION: RAD - Urethrocystogrphy Retrograde - 04/11/2022 2:09 pm CLINICAL HISTORY: BILAT STENT COMPARISON: No comparisons FINDINGS: Nineteen fluoroscopic images submitted. Total fluoro time: 0.7 minutes
[2022-04-11] MEDS ORDERED: Ringers Lactate 1,000 ML IV SCH (15:00)
[2022-04-11] MEDS: SERTRALINE HCL 50 MG TAB PO SCH (15:03)
[2022-04-11] MEDS: AMLODIPINE 10 MG TAB PO SCH (15:03)
[2022-04-11] MEDS: ISOSORBIDE MONO SR 30 MG TAB PO SCH (15:03)
--- NOTE | 2022-04-11 17:32 | CON ---
Reason For Consultation: Obstructive ureterolithiasis and sepsis. History Of Present Illness: Ms. Barnes is a 62-year-old woman with hypertension, hyperlipidemia, as thma, and anxiety who presented to the emergency department with complaints of nausea, vomiting, and diarrhea associated with generalized lower abdominal pain that had been present for the last 2-3 days . Her birthday was 04/07/2024, and they note she "went down" on that day. She was noted to be tachy cardic and tachypneic on arrival with hyponatremia, hypokalemia and some acute kidney injury signs as sociated with acidosis. A 5 mm stone was noted at the left ureterovesical junction with mild left hy dronephrosis and hydroureter as well as perinephric stranding. She was given IV fluids, started on v ancomycin and Rocephin and admitted for further management. I was subsequently contacted today for m anagement of the obstruction due to the left ureteral calculus. Past Medical History: As above documented. Past Surgical History: Not assessed. Allergies: LISTED TO PENICILLIN, ERYTHROMYCIN, CODEINE, ASPIRIN, AND FOOD ALLERGIES TO FISH PRODUCTS AND BEES, WELL AN ADHESIVE ALLERGY. Laboratory Data: I reviewed the CT scan performed on 04/08/2022, which revealed the presence of a ma rkedly atrophic right kidney and the hydronephrotic left kidney with bilateral nephrolithiasis and so me calcifications in the region of the distal ureter on the left. Blood cultures taken did reveal Klebsiella pneumoniae with sensitivities to everything except for amp icillin. White blood count remains on 04/11/2022 at 13.2 with H/H 10.5/31.6 and platelet count 206. Creatinin e has improved slightly to 2.46, although she remains acidotic and mildly hypokalemic. Assessment And Recommendations: This is a 62-year-old woman with multiple medical comorbidities who presented septic and acidotic associated with an obstructing distal left ureteral calculus with bilat eral nephrolithiasis, atrophic right kidney, hydronephrotic left kidney and left lower quadrant pain. We will urgently place a left ureteral stent to decompress her system, and I counseled the patient an d her son who was with her on the procedure as well as the risks and side effects. We discussed the need for subsequent definitive surgical management and followup that should be arranged in my office to consider those approaches once she has resolved the sepsis. WR/MODL Voice ID: [id number] Report ID: [id number]
[2022-04-11] MEDS: ATORVASTATIN 40 MG TAB PO SCH (21:26)
[2022-04-11] MEDS: Ringers Lactate 1,000 ML IV SCH (21:27)
[2022-04-11] MEDS: MORPHINE 2 MG/ML SYR IV PRN (21:42)
--- NOTE | 2022-04-12 00:38 | OP ---
Surgeon: IDA VALLE Preoperative Diagnoses: 1.Bilateral nephrolithiasis. 2.Obstructive left ureterolithiasis. 3.Obstructive pyelonephritic sepsis. Postoperative Diagnoses: 1.Bilateral nephrolithiasis. 2.Obstructive left ureterolithiasis. 3.Obstructive pyelonephritic sepsis. 4.Bilateral hydronephrosis. Procedures Performed: 1.Cystoscopy. 2.Bilateral retrograde pyelography. 3.Bilateral ureteral stent placements. Indication For Procedure: Ms. Barnes was admitted via the Emergency Department with suspicion for s epsis and the presence of an obstructing left distal ureteral calculus observed on CT. She had assoc iated bilateral nephrolithiasis and was managed with IV antimicrobial including Rocephin. Blood cult ures eventually speciated klebsiella sensitive to antimicrobials except ampicillin, and I was request ed for left ureteral stent placement. Procedure In Detail: The patient was consented in the preoperative holding area before being transfe rred to operative suite, where general anesthesia using an LMA was induced. She was given ceftriaxon e on the floor prior to the operative excursion. Her legs were placed in lithotomy and her genitalia were prepped using Hibiclens. Pneumoboots was provided for deep vein thrombosis prophylaxis. The c ase was begun using a 22-St Helenian rigid cystoscope to traverse the urethra and into the bladder with ea se. The bladder was decompressed of some cloudy and particulate matter containing urine. There was erythema of the mucosa indicative of significant cystitis throughout. The ureteral orifices were ort hotopic in location, though somewhat laterally splayed within the bladder. The left ureteral orifice was cannulated using the tip of a 5-St Helenian ureteral access catheter and a retrograde pyelogram was p erformed. There was marked ureteronephrosis and tortuosity of the ureter before entering renal pelvi s with significant pelviectasis and caliectasis. I only injected enough contrast to allow the contra st to enter the lower portion of the pelvis and the lower pole so that I knew that the wire that was later inserted up the ureter was indeed in good position within the renal pelvis and upper pole calyc es. Once that was confirmed, I then passed over the wire and a 6-St Helenian x 26 cm double-J left ureter al stent with a coil observed in the renal pelvis and 1 in the bladder observed cystoscopically. I t hen turned my attention to the right side, given the patient's current septic status and the known pr esence of stones on that side. I inserted the 5-St Helenian ureteral access catheter using the tip of a S ensor wire to guide it into the right ureteral orifice and again injected contrast. Right retrograde pyelography: Using a 70:30 mixture of Omnipaque and saline, contrast was injected i nto the right distal ureter and did propagate up a relatively nondilated ureter before entering the r enal pelvis on the right and delineating significant pelviectasis and moderate caliectasis on the rig ht side. No significant stones were visible fluoroscopically on either side. Because of the hydrone phrosis observed on the right side and the known presence of the stones and given the septic position of the patient who was also currently acidotic, to eliminate any potential obstruction on the right side, I placed a right ureteral stent as well. So, over the Sensor wire, a 6 x 26 cm double-J ureter al stent was passed into the upper pole of the right kidney where a coil was observed fluoroscopicall y and 1 cystoscopically was formed in the bladder. I then turned my attention back to the left side to confirm that the stent was in good position since the coil of the stent was significantly more inf erior on the left than on the right side, and I inserted the 5-St Helenian ureteral access catheter next t o the left ureteral stent into the distal ureter and again injected contrast. This time, the contras t did fill the renal pelvis and confirmed the appropriate coil location of the left ureteral stent wi thin the renal pelvis. As a result, I removed the cystoscope and placed an 18-St Helenian urethral [place] catheter into her bladder and placed 12-15 cc of sterile water in the balloon. The catheter was allo wed to decompress of fluid and then was connected to a drainage bag. The patient was then taken out of the lithotomy position, awakened from general anesthesia, transferred to a stretcher, and then tra nsferred to the recovery room in guarded condition. Complications: None. Discharge Disposition: She should follow up with me in the Urology Clinic once she is stably dischar ge from the hospital to plan definitive surgical management of her bilateral nephrolithiasis and the left ureterolithiasis. WR/MODL Voice ID: [id number] Report ID: [id number]
[2022-04-12 04:14] LABS: Hematocrit 30.4 % (36.0-45.0); Lymphocytes % 7.8 % (15.3-44.8); MCV 84.2 fL (80-100); MPV 8.2 fL (7.6-11.3); RBC Red Blood Cell Count 3.61 M/uL (3.86-4.86)
[2022-04-12 04:30] LABS: Magnesium 1.6 mg/dL (1.8-2.4); Potassium 3.4 mmol/L (3.5-5.1)
[2022-04-12] MEDS ORDERED: MAGNESIUM SULFATE 1 gm IVPB 1 GM/100 ML BAG IV ONE (04:33)
[2022-04-12] MEDS: POTASSIUM 25 MEQ EFFERV TAB PO SCH ×2 (05:55→09:00)
[2022-04-12] MEDS: ARFORMOTEROL TARTRATE 15 MCG/2 ML VIAL.NEB NEB SCH ×2 (09:16→19:40)
[2022-04-12] MEDS: CEFTRIAXONE 1,000 MG in NA CHLORIDE 0.9% 50 ML IVPB SCH ×2 (10:06→21:39)
[2022-04-12] MEDS: ENOXAPARIN 30 MG/0.3 ML SQ SCH (10:06)
[2022-04-12] MEDS: ISOSORBIDE MONO SR 30 MG TAB PO SCH (10:08)
[2022-04-12] MEDS: AMLODIPINE 10 MG TAB PO SCH (10:08)
[2022-04-12] MEDS: FUROSEMIDE 20 MG/ 2ML VIAL IV SCH ×2 (10:08→17:06)
[2022-04-12] MEDS: SERTRALINE HCL 50 MG TAB PO SCH (10:09)
[2022-04-12] MEDS: PROMETHAZINE INJ 25 MG/ML AMP IV PRN (11:19)
--- NOTE | 2022-04-12 13:51 | P.PN ---
Subjective Date of Service: 04/12/22 Subjective: No new changes, No C/O voiced, Improving repeat chest x-ray with improvement of pulmonary edema. Oxygenation requirements are still at 10 L so will start trying the more aggressively diurese patient. Echocardiogram pending. Urologic status is stable. Minimal abdominal tenderness Review of Systems 10-point ROS is otherwise unremarkable Physical Examination - Vital Signs Temperature: 96.8 F Blood Pressure: 173/83 Pulse: 88 Respirations: 22 Pulse Ox (%): 95 - Physical Exam General: Alert, In no apparent distress, Oriented x3 Respiratory: Diminished, Crackles/rales Cardiovascular: Regular rate/rhythm, Normal S1 S2 Gastrointestinal: Normal bowel sounds, Soft and benign, Non-distended, No tenderness Musculoskeletal: No clubbing, No swelling, No tenderness Neurological: Sensation intact, Cranial nerves 3-12 intact - Studies Microbiology Data (last 24 hrs): 04/08/22 23:18 Catheterized Urine Morris Count - Final >100,000 CFU/ML. 04/08/22 23:18 Catheterized Urine - Final Klebsiella Pneumoniae Gram Neg Ej Medications List Reviewed: Yes Assessment & Plan - Problems (Diagnosis) (1) Hypoxemia Current Visit: Yes Status: Acute (2) PJ (acute kidney injury) Current Visit: Yes Status: Acute (3) Acute pyelonephritis Current Visit: Yes Status: Acute (4) CHF (congestive heart failure) Current Visit: Yes Status: Acute Qualifiers: Heart failure chronicity: unspecified - Plan Plan: 1. Continue with gentle diuresing 2. Continue with antibiotic therapy 3. Appreciate urology follow-up 4. Physical therapy 5. patient want to go home and hopefully we can get her off oxygen 6. Echocardiogram pending 7. strict blood pressure control 8. monitor renal function closely 9. GI and DVT prophylaxis Discharge Plan: Home Plan to discharge in: Greater than 2 days - Advance Directives Does patient have a Living Will: Yes Does patient have a Durable POA for Healthcare: No - Code Status/Comfort Care Code Status Assessed: Yes Code Status: Full Code Critical Care: No Time Spent Managing PTS Care (In Minutes): 35
[2022-04-12] MEDS ORDERED: FUROSEMIDE 20 MG/ 2ML VIAL IV ONE (14:05)
--- NOTE | 2022-04-12 14:17 | RAD REPORT ---
EXAM DESCRIPTION: Elizabeth Single View04/12/2022 2:02 pm CLINICAL HISTORY: Chest pain COMPARISON: April 11, 2022 FINDINGS: Bilateral pulmonary opacities have partially resolved. Heart remains enlarged. Postsurgical changes involve the chest IMPRESSION: Improvement in mild CHF
[2022-04-12] MEDS: Ringers Lactate 1,000 ML IV SCH (15:56)
[2022-04-12] MEDS ORDERED: POTASSIUM 25 MEQ EFFERV TAB PO ONE (17:00)
[2022-04-12] MEDS ORDERED: POTASSIUM CL SA 10 MEQ TAB PO ONE (17:10)
[2022-04-12] MEDS: ALBUTEROL 2.5 MG/3 ML NEB SOL NEB PRN (19:40)
[2022-04-12] MEDS ORDERED: CEFTRIAXONE 1000 MG/VIAL ONE (20:37)
[2022-04-12] MEDS ORDERED: NA CHLORIDE 0.9% 50 ML ONE (20:40)
[2022-04-12] MEDS: ATORVASTATIN 40 MG TAB PO SCH (21:39)
[2022-04-12] MEDS: ALPRAZOLAM 1 MG TABLET PO PRN (21:43)
[2022-04-13] MEDS: Ringers Lactate 1,000 ML IV SCH ×3 (00:59→18:09)
[2022-04-13 04:20] LABS: Absolute Lymphocytes (CBC) 1.5 K/uL (0.7-4.9); Hematocrit 31.9 % (36.0-45.0); Lymphocytes % 11.7 % (15.3-44.8); MCV 84.8 fL (80-100); MPV 8.2 fL (7.6-11.3); RBC Red Blood Cell Count 3.77 M/uL (3.86-4.86)
[2022-04-13 04:25] LABS: Potassium 3.6 mmol/L (3.5-5.1)
[2022-04-13 04:29] LABS: Magnesium 1.5 mg/dL (1.8-2.4)
[2022-04-13] MEDS: POTASSIUM 25 MEQ EFFERV TAB PO SCH (09:00)
[2022-04-13] MEDS ORDERED: Magnesium Sulfate 2gm IVPB 2 G/50 ML BAG IV ONE (09:00)
[2022-04-13] MEDS: POTASSIUM CL SA 10 MEQ TAB PO SCH (09:45)
[2022-04-13] MEDS: ENOXAPARIN 30 MG/0.3 ML SQ SCH (09:45)
[2022-04-13] MEDS: FUROSEMIDE 20 MG/ 2ML VIAL IV SCH ×2 (09:45→18:09)
[2022-04-13] MEDS: SERTRALINE HCL 50 MG TAB PO SCH (09:46)
[2022-04-13] MEDS: ISOSORBIDE MONO SR 30 MG TAB PO SCH (09:46)
[2022-04-13] MEDS: CEFTRIAXONE 1,000 MG in NA CHLORIDE 0.9% 50 ML IVPB SCH ×2 (09:46→21:02)
[2022-04-13] MEDS: AMLODIPINE 10 MG TAB PO SCH (09:46)
[2022-04-13] MEDS: ARFORMOTEROL TARTRATE 15 MCG/2 ML VIAL.NEB NEB SCH ×2 (13:54→20:10)
[2022-04-13] MEDS: ACETAMINOPHEN 500 MG TAB PO PRN (18:21)
[2022-04-13] MEDS: ATORVASTATIN 40 MG TAB PO SCH (21:02)
[2022-04-13] MEDS: ALPRAZOLAM 1 MG TABLET PO PRN (21:03)
[2022-04-14] MEDS: ARFORMOTEROL TARTRATE 15 MCG/2 ML VIAL.NEB NEB SCH ×2 (06:30→20:15)
--- NOTE | 2022-04-14 07:51 | P.PN ---
Date of Service: 04/13/22 Subjective patient's respiratory status is much improved. O2 requirements are down to 4 L from 10 L yesterday. Continue to diurese. Patient will get physical therapy evaluation as well. Continue with antibiotics for the pyelonephritis. Urine is cleared. Hopefully we can get patient home over the next 48 hours. Review of Systems 10-point ROS is otherwise unremarkable Physical Examination - Vital Signs Reviewed - Physical Exam General: Alert, In no apparent distress, Oriented x3 Respiratory: Diminished, Crackles/rales Cardiovascular: Regular rate/rhythm, Normal S1 S2 Gastrointestinal: Normal bowel sounds, Soft and benign, Non-distended, No tenderness Musculoskeletal: No clubbing, No swelling, No tenderness Neurological: Sensation intact, Cranial nerves 3-12 intact Assessment & Plan - Problems (Diagnosis) (1) Hypoxemia Current Visit: Yes Status: Acute (2) PJ (acute kidney injury) Current Visit: Yes Status: Acute (3) Acute pyelonephritis Current Visit: Yes Status: Acute (4) CHF (congestive heart failure) Current Visit: Yes Status: Acute Qualifiers: Heart failure chronicity: unspecified - Plan continue with plan of care as mentioned below: 1. Continue with gentle diuresing 2. Continue with antibiotic therapy 3. Appreciate urology follow-up 4. Physical therapy 5. patient want to go home and hopefully we can get her off oxygen 6. Echocardiogram pending 7. strict blood pressure control 8. monitor renal function closely 9. GI and DVT prophylaxis Discharge Plan: Home Plan to discharge in: Greater than 2 days - Advance Directives Does patient have a Living Will: Yes Does patient have a Durable POA for Healthcare: No - Code Status/Comfort Care Code Status Assessed: Yes Code Status: Full Code Critical Care: No Time Spent Managing PTS Care (In Minutes): 35
--- NOTE | 2022-04-14 07:53 | RAD REPORT ---
EXAM DESCRIPTION: US - Transvaginal Study Probe - 04/14/2022 5:38 am CLINICAL HISTORY: Right ovarian mass COMPARISON: 2017 MRI and 2016 ultrasound FINDINGS: The uterus measures 6 x 2 x 3 cm. A fibroid is not seen. The endometrial stripe measures 4 millimeters. A fibroid is not seen 6.5 centimeter hypoechoic mass containing echoes is present within the right adnexal. It is enlarged from prior exams. Left ovary not seen secondary to overlying bowel gas. Left adnexa unremarkable. No significant free fluid. IMPRESSION: 6.5 centimeter hypoechoic mass right adnexa has enlarged from prior imaging. This may represent a fibroma, endometrioma or other mass. 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
[2022-04-14] MEDS: Ringers Lactate 1,000 ML IV SCH ×2 (08:00→17:50)
[2022-04-14] MEDS: CEFTRIAXONE 1,000 MG in NA CHLORIDE 0.9% 50 ML IVPB SCH ×2 (09:27→21:09)
[2022-04-14] MEDS: SERTRALINE HCL 50 MG TAB PO SCH (09:28)
[2022-04-14] MEDS: FUROSEMIDE 20 MG/ 2ML VIAL IV SCH ×2 (09:28→17:49)
[2022-04-14] MEDS: ISOSORBIDE MONO SR 30 MG TAB PO SCH (09:28)
[2022-04-14] MEDS: POTASSIUM CL SA 10 MEQ TAB PO SCH (09:28)
[2022-04-14] MEDS: AMLODIPINE 10 MG TAB PO SCH (09:29)
[2022-04-14] MEDS: ENOXAPARIN 40 MG/0.4 ML SQ SCH (09:29)
[2022-04-14 11:48] LABS: Absolute Lymphocytes (CBC) 1.5 K/uL (0.7-4.9); Hematocrit 34.3 % (36.0-45.0); Lymphocytes % 10.2 % (15.3-44.8); MCV 84.5 fL (80-100); MPV 7.8 fL (7.6-11.3); RBC Red Blood Cell Count 4.06 M/uL (3.86-4.86)
[2022-04-14 12:02] LABS: Potassium 4.2 mmol/L (3.5-5.1)
[2022-04-14 12:56] LABS: Blood Morphology Comment NOT SEEN (NOT SEEN); Platelet Estimate ADEQ
[2022-04-14] MEDS: MORPHINE 2 MG/ML SYR IV PRN (17:49)
--- NOTE | 2022-04-14 18:38 | P.PN ---
Subjective Date of Service: 04/14/22 Primary Care Provider: Crispin Crenshaw M.D. Chief Complaint: Pyelonephritis respiratory distress CHF Subjective: Improving No acute events overnight. She reports that her respiratory status has improved significantly. Her SpO2 is currently 99 % on room air. Review of Systems 10-point ROS is otherwise unremarkable Respiratory: Cough, SOB with Excertion Physical Examination - Vital Signs Temperature: 97.0 F Blood Pressure: 151/74 Pulse: 78 Respirations: 18 Pulse Ox (%): 97 - Physical Exam General: Alert, In no apparent distress, Oriented x3 HEENT: Atraumatic, Mucous membr. moist/pink, EOMI, Sclerae nonicteric Neck: Supple, JVD not distended Respiratory: Crackles/rales (faint bibasilar) Cardiovascular: Regular rate/rhythm, Normal S1 S2, No gallops, No rubs, No murmurs, Edema (trace) Gastrointestinal: Normal bowel sounds, Soft and benign, No tenderness, No rebound, No guarding Musculoskeletal: No clubbing Integumentary: No rashes Neurological: Normal speech, Normal affect - Studies Medications List Reviewed: Yes Assessment And Plan - Plan # Severe Sepsis secondary to Acute Left Pyelonephritis complicated by Acute Kidney Injury (improving) # Moderate Left Hydronephroureter secondary to Left Ureterovesicular Junction Calculus (5 mm) s/p Ureteral Stent She met SIRS criteria based on HR > 90 bpm, RR > 20 breaths/min, and WBC > 12,000, and the suspected source was acute pyelonephritis. Severe sepsis is suspected due to concern for tissue hypoperfusion/organ dysfunction based on creatinine >2.0 mg/dL and lactic acid > 2 mmol/L. - Sepsis order set was initiated - Initial Lactate trend was 2.2 -> 1.8 - Blood cultures drawn before antibiotics were given - Broad spectrum antibiotics started: Ceftriaxone - In regards to fluids: - 30 mL/kg of IV Normal Saline was given based on patient's actual body weight - Urology consulted - recommendations appreciated # Acute Hypoxic Respiratory Failure - likely secondary to Acute Decompensated Congestive Heart Failure Exacerbation (Unknown Ejection Fraction), improving - Symptoms were likely exacerbated by 30 mL/kg of IV fluids - Consult Cardiology - recommendations appreciated - Ordered transthoracic echocardiogram - Diuresis with IV furosemide for today - Continue home hydralazine, isosorbide mononitrate - Daily weights - Strict I/O - Cardiac diet, 1.5 L fluid restriction, 2 g Na restriction # Complex Right Ovarial Cystic Lesion (8.5 cm) - Pelvic ultrasound = "6.5 centimeter hypoechoic mass right adnexa has enlarged from prior imaging. This may represent a fibroma, endometrioma or other mass. 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 Discharge Plan: Home Plan to discharge in: 48 Hours
[2022-04-14] MEDS ORDERED: CEFTRIAXONE 1000 MG/VIAL ONE (20:18)
[2022-04-14] MEDS: ATORVASTATIN 40 MG TAB PO SCH (21:10)
[2022-04-14] MEDS: ALPRAZOLAM 1 MG TABLET PO PRN (21:12)
[2022-04-14] MEDS ORDERED: NA CHLORIDE 0.9% 50 ML ONE (21:14)
[2022-04-15 04:01] LABS: Absolute Lymphocytes (CBC) 1.9 K/uL (0.7-4.9); Hematocrit 33.7 % (36.0-45.0); Lymphocytes % 12.5 % (15.3-44.8); MCV 83.7 fL (80-100); MPV 7.9 fL (7.6-11.3); RBC Red Blood Cell Count 4.02 M/uL (3.86-4.86)
[2022-04-15 04:41] LABS: Albumin 2.3 g/dL (3.4-5.0); Bilirubin Total 0.3 mg/dL (0.2-1.0); Protein, Total 6.5 g/dL (6.4-8.2)
[2022-04-15 07:09] LABS: Magnesium 1.6 mg/dL (1.8-2.4)
[2022-04-15] MEDS: ARFORMOTEROL TARTRATE 15 MCG/2 ML VIAL.NEB NEB SCH ×2 (08:54→20:00)
[2022-04-15] MEDS ORDERED: MAGNESIUM SULFATE 1 gm IVPB 1 GM/100 ML BAG IV ONE (09:00)
[2022-04-15] MEDS: POTASSIUM CL SA 10 MEQ TAB PO SCH (10:58)
[2022-04-15] MEDS: CEFTRIAXONE 1,000 MG in NA CHLORIDE 0.9% 50 ML IVPB SCH ×2 (10:59→19:58)
[2022-04-15] MEDS: ENOXAPARIN 40 MG/0.4 ML SQ SCH (10:59)
[2022-04-15] MEDS: FUROSEMIDE 20 MG/ 2ML VIAL IV SCH ×2 (10:59→18:43)
[2022-04-15] MEDS: ISOSORBIDE MONO SR 30 MG TAB PO SCH (11:00)
[2022-04-15] MEDS: SERTRALINE HCL 50 MG TAB PO SCH (11:00)
[2022-04-15] MEDS: AMLODIPINE 10 MG TAB PO SCH (11:00)
[2022-04-15] MEDS: PROMETHAZINE INJ 25 MG/ML AMP IV PRN ×2 (12:38→20:13)
[2022-04-15] MEDS: Ringers Lactate 1,000 ML IV SCH (15:20)
--- NOTE | 2022-04-15 15:44 | P.PN ---
Subjective Date of Service: 04/15/22 Primary Care Provider: Crispin Crenshaw M.D. Chief Complaint: Pyelonephritis respiratory distress CHF No acute events overnight. She reports that she has been improving significantly. She reports mild dysuria and urinary frequency. Review of Systems 10-point ROS is otherwise unremarkable Gastrointestinal: Abdominal Pain (minimal) Genitourinary: Dysuria Physical Examination - Vital Signs Temperature: 97.2 F Blood Pressure: 147/68 Pulse: 79 Respirations: 18 Pulse Ox (%): 94 - Studies Medications List Reviewed: Yes Assessment And Plan - Plan - Physical Exam General: Alert, In no apparent distress, Oriented x3 HEENT: Atraumatic, Mucous membr. moist/pink, EOMI, Sclerae nonicteric Neck: Supple, JVD not distended Respiratory: Crackles/rales (faint bibasilar) Cardiovascular: Regular rate/rhythm, Normal S1 S2, No gallops, No rubs, No murmurs, Edema (trace) Gastrointestinal: Normal bowel sounds, Soft and benign, No tenderness, No rebound, No guarding Musculoskeletal: No clubbing Integumentary: No rashes Neurological: Normal speech, Normal affect # Severe Sepsis secondary to Acute Left Pyelonephritis complicated by Acute Kidney Injury (improving) # Moderate Left Hydronephroureter secondary to Left Ureterovesicular Junction Calculus (5 mm) s/p Ureteral Stent She met SIRS criteria based on HR > 90 bpm, RR > 20 breaths/min, and WBC > 12,000, and the suspected source was acute pyelonephritis. Severe sepsis is suspected due to concern for tissue hypoperfusion/organ dysfunction based on creatinine >2.0 mg/dL and lactic acid > 2 mmol/L. - Sepsis order set was initiated - Initial Lactate trend was 2.2 -> 1.8 - Blood cultures drawn before antibiotics were given - Broad spectrum antibiotics started: Ceftriaxone - In regards to fluids: - 30 mL/kg of IV Normal Saline was given based on patient's actual body weight - Urology consulted - recommendations appreciated # Acute Hypoxic Respiratory Failure - likely secondary to Acute Decompensated Congestive Heart Failure Exacerbation (Unknown Ejection Fraction), improving - Symptoms were likely exacerbated by 30 mL/kg of IV fluids - Consult Cardiology and spoke with Dr. Gonzales - recommendations appreciated - Ordered transthoracic echocardiogram - Diuresis with IV furosemide for today - Continue home hydralazine, isosorbide mononitrate - Daily weights - Strict I/O - Cardiac diet, 1.5 L fluid restriction, 2 g Na restriction # Complex Right Ovarial Cystic Lesion (8.5 cm) - Pelvic ultrasound = "6.5 centimeter hypoechoic mass right adnexa has enlarged from prior imaging. This may represent a fibroma, endometrioma or other mass. 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 Carrizales, he recommended consulted Dr. Garay - recommendations appreciated # Hypertension - Continue home amlodipine, isosorbide mononitrate, hydralazine # Hyperlipidemia - Continue atorvastatin # Anxiety - Continue home sertraline, PRN alprazolam Vinnie Lyn M.D.
[2022-04-15] MEDS: ATORVASTATIN 40 MG TAB PO SCH (19:58)
[2022-04-15] MEDS: ALPRAZOLAM 1 MG TABLET PO PRN (20:00)
[2022-04-16 04:14] LABS: Absolute Lymphocytes (CBC) 2.2 K/uL (0.7-4.9); Hematocrit 34.1 % (36.0-45.0); MCV 84.5 fL (80-100); MPV 7.6 fL (7.6-11.3); RBC Red Blood Cell Count 4.03 M/uL (3.86-4.86)
[2022-04-16 04:34] LABS: Albumin 2.5 g/dL (3.4-5.0); Bilirubin Total 0.3 mg/dL (0.2-1.0); Potassium 4.5 mmol/L (3.5-5.1); Protein, Total 6.9 g/dL (6.4-8.2)
[2022-04-16 06:18] LABS: Specific Gravity 1.015 (1.005-1.030); Urine Bilirubin Negative (Negative); Urine Blood 2+ (Negative); Urine Clarity Cloudy (Clear); Urine Color Yellow (Yellow); Urine Glucose Negative (Negative); Urine Protein 1+ (Negative); Urine Urobilinogen 0.2 mg/dL (0.2-1.0)
[2022-04-16 06:27] LABS: Urine Bacteria <20 /HPF (<20)
[2022-04-16] MEDS: ARFORMOTEROL TARTRATE 15 MCG/2 ML VIAL.NEB NEB SCH ×2 (08:00→20:30)
[2022-04-16] MEDS: SERTRALINE HCL 50 MG TAB PO SCH (09:22)
[2022-04-16] MEDS: ENOXAPARIN 40 MG/0.4 ML SQ SCH (09:22)
[2022-04-16] MEDS: AMLODIPINE 10 MG TAB PO SCH (09:22)
[2022-04-16] MEDS: POTASSIUM CL SA 10 MEQ TAB PO SCH (09:23)
[2022-04-16] MEDS: FUROSEMIDE 20 MG/ 2ML VIAL IV SCH ×2 (09:23→18:11)
[2022-04-16] MEDS: ISOSORBIDE MONO SR 30 MG TAB PO SCH (09:23)
[2022-04-16] MEDS: CEFTRIAXONE 1,000 MG in NA CHLORIDE 0.9% 50 ML IVPB SCH (09:23)
[2022-04-16] MEDS: PROMETHAZINE INJ 25 MG/ML AMP IV PRN (09:39)
--- NOTE | 2022-04-16 11:41 | CON ---
History Of Present Illness: This is a 62-year-old female, I was consulted for bacteremia evaluation and management. The patient was initially admitted on 04/08 to the hospital from [facility] t with complaints of generalized lower abdominal pain for 3 days. The patient has significant past m edical history of hypertension, hyperlipidemia, asthma, anxiety. She was found to have left-sided py elonephritis and sepsis and was also diagnosed with respiratory failure. At that time of admission, the patient's CT scan of abdomen, the patient's ultrasound of abdomen done on 04/14 shows 6.5 cm hypo echoic mass to right adnexa. The patient is being currently treated with IV antibiotic including Jonathan ephin with leukocytosis of 13.9. The patient's urine and blood grew Klebsiella pneumoniae sensitive to Rocephin. The patient continued to have abdominal discomfort and supposed to see chest pain coordinator lat er today. Past Medical History: As per HPI. Social History: Nonsmoker, nondrinker. Family History: Noncontributory. Medications: Rocephin. See MAR for other medications. Allergies: INCLUDE PENICILLIN, ERYTHROMYCIN. PENICILLIN CAUSES THROAT SWELLING. CODEINE, BEES, ADH ESIVES, AND ASPIRIN, FISH CONTAINING PRODUCTS. Review of Systems: A 10-point review was performed. Physical Examination: General: This is a 62-year-old female, lying in bed, not in any acute cardiopulmonary distress. Vital signs: Temperature 97, pulse 89, respirations 20, blood pressure 117/61. HEENT: Unremarkable. Neck: Supple with basal crackles. Heart: S1, S2. Regular. Abdomen: Soft. Bowel sounds present. Extremities: No edema. Laboratory Data: Shows WBC of 13.9, hemoglobin 11.3, platelets are 325. Chemistry shows sodium 134, potassium 4.5, chloride 103, bicarb 25, BUN 25, creatinine 1.6, glucose is 119. Albumin level is 2. 5. Procalcitonin is 14.6. Assessment And Plan: A 62-year-old female with urinary tract infection and acute pyelonephritis left side and the patient also has bacteremia secondary to Klebsiella pneumonia, being treated with Rocep hin. We will recommend to add Flagyl as the patient has large adnexal mass to increase coverage for anaerobic. If white count remains elevated, we will recommend to repeat blood cultures. continue supportive care and antibiotic. We will follow the patient closely. NF/[facility]South Voice ID: [id number] Report ID: [id number]
--- NOTE | 2022-04-16 14:31 | P.CNS ---
Date of Consult: 04/16/22 Reason for Consult: pelvic mass Primary Care Provider: Crispin Crenshaw M.D. Chief Complaint: Pyelonephritis respiratory distress CHF History of Present Illness: 62 yo female presented to ER and admitted for sepsis secondary to acute left pyelonephritis with Klebsiella Pneumoniae bacteremia. Pelvic mass was an incidental finding on CT abd/pelvis, which was further evaluated with TVUS. She denies pain currently, states every so often with certain movements feels right lower quadrant discomfort. This was a new finding per patient. Last pelvic exam 2019 with another PROJECT OFFICER provider here, unsure here. Urogynecology consulted to assist with workup for pelvic mass. Home medications list reviewed: Yes - Past Medical/Surgical History Diabetic: No -: Hypertension -: Hyperlipidemia -: NC -: Anxiety -: Asthma -: Double Bypass -: Cholecystectomy -: Appendectomy Psychosocial/ Personal History: Patient lives at home with her granddaughter. - Family History Father Medical History: Hypertension Mother Medical History: Liver disease - Social History Smoking Status: Current every day smoker Alcohol use: No CD- Drugs: No Caffeine use: Yes Place of Residence: Home <Sadia Clay - Last Filed: 04/16/22 14:26> <MarcogustaboLeti K - Last Filed: 04/22/22 18:33> Allergies aspirin Allergy (Intermediate, Verified 12/31/16 08:45) Rash Fish Containing Products Allergy (Verified 12/31/16 08:45) Unknown Bees Allergy (Severe, Uncoded 12/31/16 08:45) Anaphylaxis Codeine Allergy (Severe, Uncoded 12/31/16 08:45) Shortness of breath Adhesives Allergy (Uncoded 12/31/16 08:45) Unknown any penic Allergy (Uncoded 01/12/18 18:33) Unknown Erythromycin Allergy (Uncoded 12/31/16 08:45) Anaphylaxis PENICILLINS Allergy (Uncoded 12/31/16 08:45) Anaphylaxis Home Medications: Alprazolam [Xanax] 1 mg PO PRN PRN 08/24/15 Amlodipine Besylate 10 mg PO DAILY 08/24/15 Ascorbic Acid [Vitamin C] 1,000 mg PO DAILY 08/24/15 Atorvastatin Calcium 40 mg PO DAILY 08/24/15 Clopidogrel Bisulfate [Plavix*] 75 mg PO DAILY 08/24/15 Isosorbide Mononitrate [Isosorbide Mononitrate ER] 30 mg PO DAILY 08/24/15 Multivitamin [Daily Multivitamin] 1 each PO DAILY 08/24/15 Nitroglycerin [Nitrostat*] 0.4 mg SL PRN PRN 08/24/15 Sertraline HCl 150 mg PO DAILY 08/24/15 Montelukast [Singulair*] 10 mg PO DAILY 12/30/16 Albuterol Sulfate [Albuterol Sulfate Hfa] 04/10/22 Fluticasone/Umeclidin/Vilanter [Trelegy Ellipta 100-62.5-25] 1 puff PO DAILY 04/10/22 ARIPiprazole [Aripiprazole] 2 mg PO BEDTIME 04/11/22 Candesartan Cilexetil 32 mg PO DAILY 04/11/22 levoFLOXacin [Levaquin*] 500 mg PO DAILY 10 Days #10 tab 04/17/22 metroNIDAZOLE [Flagyl*] 500 mg PO Q8H 7 Days #21 tab 04/17/22 Review of Systems Unremarkable General: Unremarkable Cardiovascular: Unremarkable Gastrointestinal: Unremarkable Genitourinary: Other (urinary catheter in place) Integumentary: Unremarkable Neurological: Unremarkable Lymphatics: Unremarkable <Sadia Clay Filed: 04/16/22 14:26> Physical Examination Temp Pulse Resp BP Pulse Ox 97.4 F 80 20 160/73 H 95 04/16/22 12:00 04/16/22 12:00 04/16/22 12:00 04/16/22 12:00 04/16/22 12:00 General: Alert, In no apparent distress, Cooperative HEENT: Atraumatic, Normocephalic Neck: Supple, Without JVD or thyroid abnormality Respiratory: Clear to auscultation bilaterally, Normal air movement Cardiovascular: No edema, Normal pulses Gastrointestinal: Soft and benign, Other, Tenderness (mild tenderness with palp ation to right lower quadrant ) Integumentary: No rashes Neurological: Normal speech Urinary: Peguero catheter <Sadia Clay Filed: 04/16/22 14:26> Temp Pulse Resp BP Pulse Ox 97.6 F 80 18 130/72 93 04/17/22 08:00 04/17/22 08:00 04/17/22 08:00 04/17/22 08:00 04/17/22 08:00 <Leti Packer - Last Filed: 04/22/22 18:33> - Problems (1) Pelvic mass Status: Acute Plan: TVUS revealed 6.5 cm simple mass on right adnexa. Recommend CA125 level, ordered. She should follow up in office next week upon discharge for further discussion and plan on laparoscopic bilateral salpingo-oophorectomy with pelvic washings. This was reviewed with the patient. If the CA 125 level is significantly elevated, we can discuss referral to parts order and stock clerk/onc for surgery, otherwise can be done here. (2) Acute pyelonephritis Status: Acute Plan: Currently on antibiotics for pyelo, ID consulted, ureteral stents placed and peguero catheter in place draining urine. Labs indicate renal function improved. WBC still elevated, on Rocephin, flagyl added by ID. (3) PJ (acute kidney injury) Status: Acute Plan: Currently on antibiotics for pyelo, ID consulted, ureteral stents placed and peguero catheter in place draining urine. Labs indicate renal function improved. WBC still elevated, on Rocephin, flagyl added by ID. Conclusions/Impression: Follow up in office upon discharge for discussion on surgery. Ca125 pending. Physician Review: Patient Assessed, Agree with Above Assessment and Plan Physician Review Additional Text: DAVID Ramos <Sadia Clay - Last Filed: 04/16/22 14:26> Physician Review: Patient Assessed, Agree with Above Assessment and Plan Physician Review Additional Text: case reviewed and all test results reviewed including imaging will follow up in office karime <Leti Packer - Last Filed: 04/22/22 18:33>
[2022-04-16] MEDS ORDERED: ALBUTEROL 2.5 MG/3 ML NEB SOL NEB PRN (15:00)
[2022-04-16] MEDS: METRONIDAZOLE 500mg IVPB 500 MG/100 ML BAG IV SCH (18:11)
--- NOTE | 2022-04-16 19:51 | P.PN ---
Subjective Date of Service: 04/16/22 Primary Care Provider: Crispin Crenshaw M.D. Chief Complaint: Pyelonephritis respiratory distress CHF Subjective: No new changes No acute events overnight. She states that her urinary symptoms are improving. WBC remains elevated, but slightly improved. Review of Systems 10-point ROS is otherwise unremarkable Genitourinary: Dysuria Physical Examination - Vital Signs Temperature: 97.8 F Blood Pressure: 148/62 Pulse: 82 Respirations: 20 Pulse Ox (%): 95 - Studies Medications List Reviewed: Yes Assessment And Plan - Plan - Physical Exam General: Alert, In no apparent distress, Oriented x3 HEENT: Atraumatic, Mucous membr. moist/pink, EOMI, Sclerae nonicteric Neck: Supple, JVD not distended Respiratory: Crackles/rales (faint bibasilar) Cardiovascular: Regular rate/rhythm, Normal S1 S2, No gallops, No rubs, No murmurs, No edema Gastrointestinal: Normal bowel sounds, Soft and benign, No tenderness, No rebound, No guarding Musculoskeletal: No clubbing Integumentary: No rashes Neurological: Normal speech, Normal affect # Severe Sepsis secondary to Acute Left Pyelonephritis with Klebsiella Pneumoniae Bacteremia complicated by Acute Kidney Injury (improving) # Moderate Left Hydronephroureter secondary to Left Ureterovesicular Junction Calculus (5 mm) s/p Ureteral Stent She met SIRS criteria based on HR > 90 bpm, RR > 20 breaths/min, and WBC > 12,000, and the suspected source was acute pyelonephritis. Severe sepsis is suspected due to concern for tissue hypoperfusion/organ dysfunction based on creatinine >2.0 mg/dL and lactic acid > 2 mmol/L. - Sepsis order set was initiated - Initial Lactate trend was 2.2 -> 1.8 - Blood cultures drawn before antibiotics were given - Broad spectrum antibiotics started: Ceftriaxone - In regards to fluids: - 30 mL/kg of IV Normal Saline was given based on patient's actual body weight - Urology consulted - recommendations appreciated - Infectious Diseases consulted and spoke with Dr. Cotto - recommendations appreciated - He recommended adding metronidazole # Acute Hypoxic Respiratory Failure - likely secondary to Acute Decompensated Congestive Heart Failure Exacerbation (Unknown Ejection Fraction), improving - Symptoms were likely exacerbated by 30 mL/kg of IV fluids - Consult Cardiology and spoke with Dr. Gonzales - recommendations appreciated - Ordered transthoracic echocardiogram - Diuresis with IV furosemide for today - plan to switch to PO tomorrow - Continue home hydralazine, isosorbide mononitrate - Daily weights - Strict I/O - Cardiac diet, 1.5 L fluid restriction, 2 g Na restriction # Complex Right Ovarian Cystic Lesion (8.5 cm) - Pelvic ultrasound = "6.5 centimeter hypoechoic mass right adnexa has enlarged from prior imaging. This may represent a fibroma, endometrioma or other mass. 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 Garay she will evaluate today- recommendations appreciated # Hypertension - Continue home amlodipine, isosorbide mononitrate, hydralazine # Hyperlipidemia - Continue atorvastatin # Anxiety - Continue home sertraline, PRN alprazolam Vinnie Lyn M.D. Physician Review: Patient Assessed, Agree with Above Assessment and Plan
[2022-04-16] MEDS: ATORVASTATIN 40 MG TAB PO SCH (21:36)
[2022-04-16] MEDS: Ringers Lactate 1,000 ML IV SCH ×2 (21:40)
[2022-04-16] MEDS: MORPHINE 2 MG/ML SYR IV PRN (21:41)
[2022-04-16] MEDS ORDERED: ALPRAZOLAM 1 MG TABLET PO PRN (22:45)
[2022-04-17] MEDS: METRONIDAZOLE 500mg IVPB 500 MG/100 ML BAG IV SCH ×2 (00:22→09:00)
[2022-04-17 03:48] LABS: Absolute Lymphocytes (CBC) 1.9 K/uL (0.7-4.9); Hematocrit 34.7 % (36.0-45.0); Lymphocytes % 14.7 % (15.3-44.8); MCV 84.5 fL (80-100); MPV 7.6 fL (7.6-11.3); RBC Red Blood Cell Count 4.11 M/uL (3.86-4.86)
[2022-04-17 03:58] LABS: Albumin 2.7 g/dL (3.4-5.0); Bilirubin Total 0.3 mg/dL (0.2-1.0); Potassium 4.6 mmol/L (3.5-5.1)
[2022-04-17] MEDS: ARFORMOTEROL TARTRATE 15 MCG/2 ML VIAL.NEB NEB SCH (08:00)
[2022-04-17 08:33] VITALS: BP 130/72; TEMP 97.6
--- NOTE | 2022-04-17 08:36 | P.DS ---
Admission Date: 04/09/22 Discharge Date: 04/17/22 Primary Care Provider: Crispin Crenshaw M.D. Disposition: ROUTINE DISCHARGE Discharge Condition: GOOD Reason for Admission: Pyelonephritis respiratory distress CHF Consultations: 1. Urology 2. Infectious Diseases 3. Cardiology 4. Obstetrics/Gynecology Procedures: - 04/11/2022 - Cystoscopy with Bilateral Ureteral Stent Placement and Bilateral Retrograde Pyelographies Hospital Course: DIAGNOSES: # Severe Sepsis secondary to Acute Left Pyelonephritis with Klebsiella Pneumon iae Bacteremia complicated by Acute Kidney Injury (improving) # Moderate Left Hydronephroureter secondary to Left Ureterovesicular Junction Calculus (5 mm) s/p Ureteral Stent # Acute Hypoxic Respiratory Failure - likely secondary to Pulmonary Edema vs Acute Decompensated Congestive Heart Failure Exacerbation (Unknown Ejection Fraction), resolved # Complex Right Ovarian Cystic Lesion (8.5 cm) # Hypertension # Hyperlipidemia # Anxiety HOSPITAL COURSE: Ms. Brittany Barnes is a pleasant 62-year-old female with a past medical history significant for hypertension, hyperlipidemia, and anxiety who was admitted to the [facility] on 04/09/2022 for left flank pain with associated nausea and vomiting. Upon further evaluation, she was found to have an acute kidney injury with a moderate left hydronephroureter secondary to left ureterovesicular junction calculus. She was admitted to the medicine service for severe sepsis which was thought to be secondary to acute left pyelonephritis. She was treated with broad-spectrum antibiotics and 30 mL/kg per sepsis protocol. Urology was consulted, and on 04/11/2022, she underwent a cystoscopy with bilateral ureteral stent placement and bilateral retrograde pyelographies. Shortly after admission, her hospital course was complicated by acute hypoxic respiratory failure thought to be secondary to pulmonary edema from the sepsis bundle. Cardiology was consulted and Dr. Gonzales evaluated her. She was diuresed with IV furosemide, with significant improvement of her respiratory status to room air. Her urine and blood cultures would then return positive for Klebsiella Pneumoniae (resistant only to ampicillin). Infectious Diseases was consulted and Dr. Cotto evaluated her. Since she had already received 7 days of ceftriaxone in the hospital. He has cleared her for discharge with an additional 10 days of levofloxacin and 7 days of metronidazole. During her evaluation, her CT abdomen/pelvis revealed, "8.5 cm complex right ovarian lesion with cystic and complex cystic components noted." A follow-up transvaginal ultrasound revealed, "6.5 centimeter hypoechoic mass right adnexa has enlarged from prior imaging. This may represent a fibroma, endometrioma or other mass. 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 Packer. A CA 125 level was ordered and she and her daughter were advised to schedule a follow-up appointment with Gynecology next week to follow-up these results. They verbalized understanding. On 04/17/2022, she was seen on morning rounds and deemed medically stable for discharge. She was discharged with instructions to schedule follow-up appointments with her PCP (Dr. Crenshaw) in 3-5 days, Cardiology (Dr. Gonzales) in 5- 7 days, Urology (Dr. Colin) in 5-7 days, and with Etiquette Teacher (Dr. Packer) in 5-7 days. She was provided prescriptions for levofloxacin and metronidazole. She and her daughter were given the opportunity to ask questions and reported no further questions. Furthermore, all questions were answered to the best of my ability. Today, I personally spent 40 minutes with her, of which greater than 50% of the time was spent in patient education, counseling, and coordination of care as described above. - Physical Exam General: Alert, In no apparent distress, Oriented x3 HEENT: Atraumatic, Mucous membr. moist/pink, EOMI, Sclerae nonicteric Neck: Supple, JVD not distended Respiratory: CTAB without wheezes, rhonchi, or rales Cardiovascular: Regular rate/rhythm, Normal S1 S2, No gallops, No rubs, No murmurs, No edema Gastrointestinal: Normal bowel sounds, Soft and benign, No tenderness, No rebound, No guarding Musculoskeletal: No clubbing Integumentary: No rashes Neurological: Normal speech, Normal affect Vital Signs/Physical Exam: Temp Pulse Resp BP Pulse Ox 97.6 F 80 18 130/72 93 04/17/22 08:00 04/17/22 08:00 04/17/22 08:00 04/17/22 08:00 04/17/22 08:00 Laboratory Data at Discharge: WBC 13.0 K/uL (4.3-10.9) H 04/17/22 03:23 Hgb 11.4 g/dL (12.0-15.0) L 04/17/22 03:23 Hct 34.7 % (36.0-45.0) L 04/17/22 03:23 Plt Count 317 K/uL (152-406) 04/17/22 03:23 PT 13.8 SECONDS (9.5-12.5) H 04/08/22 21:00 INR 1.25 04/08/22 21:00 APTT 35.3 SECONDS (24.3-36.9) 04/08/22 21:00 Sodium 133 mmol/L (136-145) L 04/17/22 03:23 Potassium 4.6 mmol/L (3.5-5.1) 04/17/22 03:23 BUN 29 mg/dL (7-18) H 04/17/22 03:23 Creatinine 1.78 mg/dL (0.55-1.3) H 04/17/22 03:23 Glucose 124 mg/dL (74-106) H 04/17/22 03:23 Magnesium 1.6 mg/dL (1.8-2.4) L 04/15/22 03:19 Total Bilirubin 0.3 mg/dL (0.2-1.0) 04/17/22 03:23 AST 23 U/L (15-37) 04/17/22 03:23 ALT 30 U/L (12-78) 04/17/22 03:23 Alkaline Phosphatase 144 U/L (45-117) H 04/17/22 03:23 Home Medications: RX: Alprazolam [Xanax] 1 mg PO PRN PRN 08/24/15 RX: Amlodipine Besylate 10 mg PO DAILY 08/24/15 RX: Ascorbic Acid [Vitamin C] 1,000 mg PO DAILY 08/24/15 RX: Atorvastatin Calcium 40 mg PO DAILY 08/24/15 RX: Clopidogrel Bisulfate [Plavix*] 75 mg PO DAILY 08/24/15 RX: Isosorbide Mononitrate [Isosorbide Mononitrate ER] 30 mg PO DAILY 08/24/15 RX: Multivitamin [Daily Multivitamin] 1 each PO DAILY 08/24/15 RX: Nitroglycerin [Nitrostat*] 0.4 mg SL PRN PRN 08/24/15 RX: Sertraline HCl 150 mg PO DAILY 08/24/15 RX: Montelukast [Singulair*] 10 mg PO DAILY 12/30/16 RX: Albuterol Sulfate [Albuterol Sulfate Hfa] 04/10/22 RX: Fluticasone/Umeclidin/Vilanter [Trelegy Ellipta 100-62.5-25] 1 puff PO DAILY 04/10/22 RX: ARIPiprazole [Aripiprazole] 2 mg PO BEDTIME 04/11/22 RX: Candesartan Cilexetil 32 mg PO DAILY 04/11/22 RX: levoFLOXacin [Levaquin*] 500 mg PO DAILY 10 Days #10 tab 04/17/22 RX: metroNIDAZOLE [Flagyl*] 500 mg PO Q8H 7 Days #21 tab 04/17/22 New Medications: RX: metroNIDAZOLE [Flagyl*] 500 mg PO Q8H 7 Days #21 tab RX: levoFLOXacin [Levaquin*] 500 mg PO DAILY 10 Days #10 tab Physician Discharge Instructions: 1. Please schedule follow-up appointment with your PCP (Dr. Crenshaw) in 3-5 days 2. Please schedule follow-up with Urology (Dr. Colin) in 5-7 days to schedule ureteral stent removal 3. Please schedule follow-up with Gynecology (Dr. Packer) in 5-7 days to foll ow up the mass on your ovary 4. Please schedule follow-up with Cardiology (Dr. Gonzales) in 5-7 days Diet: AHA Activity: Ad henrik Followup: Crsipin Crenshaw MD [Primary Care Provider] - (PCP- call to schedule an appointment ) Leti Packer MD [ACTIVE - CAN ADMIT] - 1 Week (nut dehydrator operator- call to schedule an appointment ) Juan Colin [ACTIVE - CAN ADMIT] - 1 Week (urologist- call to schedule an appointment ) Ashu Gonzales MD [ACTIVE - CAN ADMIT] - Time spent managing pt's care (in minutes): 40
[2022-04-17] MEDS: ENOXAPARIN 40 MG/0.4 ML SQ SCH (09:00)
[2022-04-17] MEDS: FUROSEMIDE 20 MG/ 2ML VIAL IV SCH (09:10)
[2022-04-17] MEDS: SERTRALINE HCL 50 MG TAB PO SCH (09:10)
[2022-04-17] MEDS: AMLODIPINE 10 MG TAB PO SCH (09:10)
[2022-04-17] MEDS: ISOSORBIDE MONO SR 30 MG TAB PO SCH (09:11)
[2022-04-17] MEDS: POTASSIUM CL SA 10 MEQ TAB PO SCH (09:11)
[2022-04-17 09:15] VITALS: O2SAT 97
--- NOTE | 2022-04-18 01:42 | CON ---
History Of Present Illness: The patient admitted on 04/09/[address] Lyn's service with pyeloneph ritis, ovarian mass, congestive heart failure, hydronephrosis, nausea, vomiting, diaphoresis, and gen eralized pain. She is 62. Allergies: MS. JEROME HAS ALLERGIES TO ASPIRIN, FISH, ADHESIVE, CODEINE, AND PENICILLIN. Medications: Include Xanax, Lasix, Imdur, Lipitor, antibiotics, Norvasc, inhalers, Lovenox, and ceft riaxone. Past Medical History: Include anxiety, coronary artery disease, dyslipidemia, hypertension, as well as COPD and asthma. Review of Systems: Negative. Social History: Negative. Family History: Noncontributory. Physical Examination: Vital Signs: Stable, afebrile. HEENT: Negative. Neck: Supple. No bruit. Chest: Clear. Cardiac: Revealed regular rhythm and rate. No murmurs, gallops, or rubs. Abdomen: Benign. Extremities: Revealed no clubbing, cyanosis, or edema. Diagnostic Data: O2 saturation was 96%. Creatinine is 1.55. White count was 15,000. Procalcitonin was elevated. BNP was 13,385. EKG showed left axis deviation. Chest x-ray showed congestive heart failure. Impression: 1.Acute congestive heart failure, most likely diastolic. Echocardiogram is pending. Continue prese nt regimen. She should be on low dose Lasix. Consider low-dose beta-mukund to see what the echocar diogram shows before making further decisions. 2.Pyelonephritis. 3.Ovarian mass. 4.Renal insufficiency. 5.Elevated procalcitonin secondary to infection. Again, I agree with her present regimen. We will see what the echocardiogram shows before making fur ther decisions. ANITA/CHAKA Voice ID: [id number] Report ID: [id number]
== END 2022-04-17 10:46 | disposition home or self-care (01) | DRG 853 ==
LOC: ER 18:47 → ERHOLD 04-09 01:34 → 2ND 04-09 01:52
PROVIDERS: ADMIT Internal Medicine Nephrology; ATTEND Internal Medicine Nephrology
PROC: 5A09457 Assistance with Respiratory Ventilation, 24-96 Consecutive Hours, Continuous Positive Airway Pressure (ICD-10-PCS; 2022-04-10)
PROC: 0T788DZ Dilation of Bilateral Ureters with Intraluminal Device, Via Natural or Artificial Opening Endoscopic (ICD-10-PCS; principal; 2022-04-11 12:30)
DX: A41.59 Other Gram-negative sepsis (principal); I50.31 Acute diastolic (congestive) heart failure; J96.01 Acute respiratory failure with hypoxia; N10 Acute pyelonephritis; N17.9 Acute kidney failure, unspecified; N13.6 Pyonephrosis; E87.2 Acidosis; R65.20 Severe sepsis without septic shock; N20.0 Calculus of kidney; E78.5 Hyperlipidemia, unspecified; I11.0 Hypertensive heart disease with heart failure; E87.6 Hypokalemia; N83.201 Unspecified ovarian cyst, right side; R31.29 Other microscopic hematuria; F41.9 Anxiety disorder, unspecified; Z88.6 Allergy status to analgesic agent; Z91.030 Bee allergy status; Z88.0 Allergy status to penicillin; Z91.013 Allergy to seafood; J45.909 Unspecified asthma, uncomplicated; I25.2 Old myocardial infarction
CPT/HCPCS: 36415; 51610; 51702; 71045; 71250; 74176; 74450; 76830; 80048; 80053; 81001; 82805; 82947; 83605; 83735; 83880; 84132; 84145; 85025; 85610; 85730; 86304; 87040; 87077; 87086; 87088; 87186; 87205; 87324; 93005; 94640; 94660; 94760; 96365; 96375; 97110; 97116; 97161; 97530; 99285; J0360; J1650; J1940; J2250; J2270; J2370; J2405; J2550; J2704; J3010; J3370; J3475; J3480; J7030; J7040; J7050; J7120; J7605; U0003